=== PATIENT | female | born 1990 | race Caucasian/White ===

== ENCOUNTER 2016-12-26 13:15 | Inpatient (IN) | payer SELFPAY ==
[~2016-12-26] VITALS: Ht 167.6 cm; Wt 69.5 kg
[2016-12-26 13:26] VITALS: BP 112/71; PULSE 120; RESP 12; TEMP 100.3; O2SAT 96
[2016-12-26 13:35] VITALS: BP 112/71; PULSE 120; RESP 13; TEMP 100.3; O2SAT 96
[2016-12-26] MEDS ORDERED: VANCOMYCIN INJ 1,250 MG in SODIUM CHLOR 0.9% 250 ML INJ 250 ML IV STA (13:48)
[2016-12-26] MEDS ORDERED: PIPERACIL-TAZO 4.5 GM PREMIX 100 ML IV STA (13:48)
[2016-12-26 14:07] LABS: AUTOMATED NEUTROPHIL # 12.7 TH/MM3 (1.8-7.7); BASOPHIL % 0.3 % (0.0-2.0); EOSINOPHIL # 0.1 TH/MM3 (0-0.4); EOSINOPHIL % 0.4 % (0.0-4.0); HEMATOCRIT 34.6 % (35.0-46.0); HEMO FLAGS DIFF FINAL; LYMPH % 5.2 % (9.0-44.0); LYMPHOCYTE # 0.8 TH/MM3 (1.0-4.8); MEAN CELL VOLUME 92.4 FL (80.0-100.0); MEAN CORPUSCULAR HEMOGLOBIN 32.3 PG (27.0-34.0); MONO % 9.1 % (0.0-8.0); PLATELET COUNT 124 TH/MM3 (150-450); RED BLOOD COUNT 3.75 MIL/MM3 (4.00-5.30); RED CELL DISTRIBUTION WIDTH 13.8 % (11.6-17.2); WHITE BLOOD COUNT 14.9 TH/MM3 (4.0-11.0)
[2016-12-26 14:24] LABS: ANION GAP 9 MEQ/L (5-15); AST (GOT) 76 U/L (15-37); BICARBONATE 24.1 MEQ/L (21.0-32.0); BLOOD UREA NITROGEN 8 MG/DL (7-18); CHLORIDE 96 MEQ/L (98-107); GLOMERULAR FILTRATION RATE 91 ML/MIN (>89); POTASSIUM 3.2 MEQ/L (3.5-5.1); SODIUM (NA) 129 MEQ/L (136-145)
[2016-12-26 14:25] LABS: ALT (GPT) 173 U/L (10-53)
[2016-12-26 14:27] LABS: ALKALINE PHOSPHATASE 136 U/L (45-117); TOTAL BILIRUBIN ADULT 0.7 MG/DL (0.2-1.0)
--- NOTE | 2016-12-26 14:28 | PD ---
HPI Chief Complaint: Skin Problem Time Seen by Provider: 13:47 Travel History International Travel<30 days: No Contact w/Intl Traveler<30days: No Traveled to known affect area: No History of Present Illness HPI 26-year-old female arrives by EMS due to right knee pain. She developed some redness in the right knee last night and overnight the pain became worse to the point where it was so severe she couldn't walk leading to the EMS activation. She received 10 mg of morphine en route over which confirmed some benefit but moderate to severe pain still report upon arrival. EMS noted aperture of 102 and a heart rate of 120. Patient has a history of IV drug abuse most recently 2 months ago. The pain is worse with range of motion. It's constant pain. PFSH Past Medical History ADHD: Yes Anemia: Yes Asthma: Yes Autoimmune Disease: No Blood Disorders: No Bipolar Disorder: Yes (NOT ON MEDICATION) Anxiety: No Depression: Yes Cancer: No Cardiovascular Problems: No Cystic Fibrosis: No Diabetes: No Diminished Hearing: No Genitourinary: Yes (CHRONIC KIDNEY PROBLEM frequent uti ) Musculoskeletal: No Neurologic: No Psychiatric: Yes Respiratory: Yes Integumentary: Yes (SCABIES) Seizures: No Sickle Cell Disease: No Sleep Apnea: No Thyroid Disease: No Ulcer: No ?: Unknown LMP: October 2016 : 5 Para: 1 Miscarriage: 3 Past Surgical History Section: No Other Surgery: Yes (WISDOM TEETH EXTRACTION) Social History Alcohol Use: Yes (heavely ) Tobacco Use: Yes (1 PPD) Substance Use: Yes Allergies-Medications (Allergen,Severity, Reaction): Coded Allergies: Bactrim (Verified Allergy, Severe, HIVES, 12/26/16) Bactroban (Verified Allergy, Severe, 12/26/16) Bees (Verified Adverse Reaction, Severe, Anaphylaxis, 12/26/16) Reported Meds & Prescriptions Reported Meds & Active Scripts Active No Active Prescriptions or Reported Medications Review of Systems Except as stated in HPI: all other systems reviewed are Neg General / Constitutional: Positive: Fever Musculoskeletal: Positive: Pain Skin: Positive Lesions Physical Exam Narrative GENERAL: 26-year-old female well-nourished well-developed very sleepy SKIN: Focused skin assessment warm/dry. There is erythema about the proximal tibia anteriorly about 12 cm in greatest diameter extending from the region of the inferior margin of the patella to be about the distal aspect of the proximal third of the tibia. HEAD: Atraumatic. Normocephalic. EYES: Pupils equal and round. No scleral icterus. No injection or drainage. ENT: No nasal bleeding or discharge. Mucous membranes pink and moist. NECK: Trachea midline. No JVD. CARDIOVASCULAR: Regular rhythm. Tachycardia to about 120. RESPIRATORY: No accessory muscle use. Clear to auscultation. Breath sounds equal bilaterally. GASTROINTESTINAL: Abdomen soft, non-tender, nondistended. Hepatic and splenic margins not palpable. MUSCULOSKELETAL: No obvious deformities. No clubbing. No cyanosis. No edema. NEUROLOGICAL: Awake and alert. No obvious cranial nerve deficits. Motor grossly within normal limits. Normal speech. PSYCHIATRIC: Appropriate mood and affect; insight and judgment normal. Data Data Last Documented VS Vital Signs Date Time Temp Pulse Resp B/P Pulse Ox O2 Delivery O2 Flow Rate FiO2 12/26/16 13:35 120 13 12/26/16 13:35 100.3 112/71 96 Room Air Vital signs reviewed Orders Complete Blood Count With Diff (12/26/16 13:48) Comprehensive Metabolic Panel (12/26/16 13:48) Lactic Acid Sepsis Protocol (12/26/16 13:48) Urinalysis - C+S If Indicated (12/26/16 13:48) Blood Culture (12/26/16 13:48) Chest, Single Ap (12/26/16 13:48) Blood Glucose (12/26/16 13:48) Ecg Monitoring (12/26/16 13:48) Iv Access Insert/Monitor (12/26/16 13:48) Oximetry (12/26/16 13:48) Oxygen Administration (12/26/16 13:48) Piperacil-Tazo 4.5 Gm Premix (Zosyn 4.5 (12/26/16 13:48) Vancomycin Inj (Vancomycin Inj) (12/26/16 13:48) Knee, Ltd (1 Or 2vws) (12/26/16 ) Lidocai-Epi 1%-1:100,000 Inj (Xylocaine- (12/26/16 15:00) Synovial Fl Cell Count + Diff (12/26/16 14:48) Fluid Culture And Gram Stain (12/26/16 14:48) Mri Joint Knee W&W/O Contrast (12/26/16 ) Westergren Sedimentation Rate (12/26/16 15:07) C-Reactive Protein (Crp) (12/26/16 15:08) Admit Order (Ed Use Only) (12/26/16 15:15) Beta Hcg (Quant/Titer) (12/26/16 15:08) Labs Laboratory Tests Test 12/26/16 12/26/16 13:48 13:55 White Blood Count 14.9 TH/MM3 Red Blood Count 3.75 MIL/MM3 Hemoglobin 12.1 GM/DL Hematocrit 34.6 % Mean Corpuscular Volume 92.4 FL Mean Corpuscular Hemoglobin 32.3 PG Mean Corpuscular Hemoglobin 35.0 % Concent Red Cell Distribution Width 13.8 % Platelet Count 124 TH/MM3 Mean Platelet Volume 9.1 FL Neutrophils (%) (Auto) 85.0 % Lymphocytes (%) (Auto) 5.2 % Monocytes (%) (Auto) 9.1 % Eosinophils (%) (Auto) 0.4 % Basophils (%) (Auto) 0.3 % Neutrophils # (Auto) 12.7 TH/MM3 Lymphocytes # (Auto) 0.8 TH/MM3 Monocytes # (Auto) 1.4 TH/MM3 Eosinophils # (Auto) 0.1 TH/MM3 Basophils # (Auto) 0.0 TH/MM3 CBC Comment DIFF FINAL Differential Comment Sodium Level 129 MEQ/L Potassium Level 3.2 MEQ/L Chloride Level 96 MEQ/L Carbon Dioxide Level 24.1 MEQ/L Anion Gap 9 MEQ/L Blood Urea Nitrogen 8 MG/DL Creatinine 0.76 MG/DL Estimat Glomerular Filtration 91 ML/MIN Rate Random Glucose 106 MG/DL Calcium Level 8.5 MG/DL Total Bilirubin 0.7 MG/DL Aspartate Amino Transf 76 U/L (AST/SGOT) Alanine Aminotransferase 173 U/L (ALT/SGPT) Alkaline Phosphatase 136 U/L Total Protein 7.4 GM/DL Albumin 3.3 GM/DL Lactic Acid Level 1.1 mmol/L [facility] Medical Decision Making Medical Screen Exam Complete: Yes Emergency Medical Condition: Yes Medical Record Reviewed: Yes Differential Diagnosis Septic arthritis, cellulitis, necrotizing fasciitis, osteomyelitis Narrative Course CBC & BMP Diagram 12/26/16 13:48 AST 76 ALT 173 LA 1.1 Last 24 hours Impressions Chest X-Ray 12/26/16 1348 Signed Impressions: Service Date/Time: Monday, December 26, 2016 13:58 - CONCLUSION: No acute disease. Luis Daniel Calderon MD Knee X-Ray 12/26/16 0000 Signed Impressions: Service Date/Time: Monday, December 26, 2016 14:07 - CONCLUSION: No acute disease. Luis Daniel Calderon MD Zosyn and vancomycin started. The patient is sepsis criteria due to cellulitis. An attempt at right knee arthrocentesis failed. MRI of the knee ordered. ESR added on. D/w Senior [employer]i [employer]er Dr Renteria with admission under Dr Deleon. MRI knee/ESR/CRP pending. Procedures Procedure Narrative RIGHT knee arthrocentesis The right knee was sterilized with iodine. Lidocaine was injected around the site of insertion, posteromedial left patella. An 18-gauge needle with a 20 cc syringe was advanced for fluid aspirate however there is minimal if any fluid in the joint space and none was collected. Patient tolerated the procedure reasonably well. The skin overlying the site of injection was not cellulitic. Sepsis Criteria SIRS Criteria (2 or more): Temp > 100.9 or < 96.8, Heart rate over 90, WBC > 38486, < 4000 or > 10% bands Diagnosis Primary Impression: Sepsis affecting skin Additional Impressions: Hypokalemia Hyponatremia Admitting Information Admitting Physician Requests: Admit Scripts No Active Prescriptions or Reported MedCollins Fonseca MD Dec 26, 2016 14:28
--- NOTE | 2016-12-26 14:50 | RADRPT ---
EXAM DATE/TIME: 12/26/2016 13:58 [facility] COMPARISON: No previous studies available for comparison. INDICATIONS : Fever. Patient was found laying in street, states she is unaware of what happened. MEDICAL HISTORY : Unobtainable. SURGICAL HISTORY : Unobtainable. ENCOUNTER: Initial ACUITY: 1 day PAIN SCORE: 0/10 LOCATION: Bilateral chest FINDINGS: A single view of the chest demonstrates the lungs to be symmetrically aerated without evidence of mas s, infiltrate or effusion. The cardiomediastinal contours are unremarkable. Osseous structures are intact. CONCLUSION: No acute disease. Luis Daniel Calderon MD on December 26, 2016 at 14:48 Board Certified Radiologist. This report was verified electronically.
--- NOTE | 2016-12-26 14:50 | RADRPT ---
EXAM DATE/TIME: 12/26/2016 14:07 [facility] COMPARISON: No previous studies available for comparison. INDICATIONS : Right knee pain, redness, and swelling. Patient was found laying in street, states she is unaware of what happened. MEDICAL HISTORY : Unobtainable. SURGICAL HISTORY : Unobtainable. ENCOUNTER: Initial ACUITY: 1 day PAIN SCORE: 10/10 LOCATION: Right knee FINDINGS: Two view examination of the right knee demonstrates no evidence of fracture or dislocation. Bony min eralization is normal. The suprapatellar soft tissues have a normal configuration. CONCLUSION: No acute disease. Luis Daniel Calderon MD on December 26, 2016 at 14:48 Board Certified Radiologist. This report was verified electronically.
[2016-12-26] MEDS ORDERED: LIDOCAINE 1%/EPINEPHrine 1:100,000 SOLN 20 ML VIAL INFIL ONE (15:00)
[2016-12-26 15:24] VITALS: RESP 16; O2SAT 97
[2016-12-26] MEDS ORDERED: FLUMAZENIL 0.5 MG/5 ML VIAL IV PUSH PRN (15:45)
[2016-12-26] MEDS ORDERED: SENNOSIDES 8.6 MG TAB PO PRN (15:45)
[2016-12-26] MEDS ORDERED: NALOXONE HCL 0.4 MG/ML AMP IV PRN (15:45)
[2016-12-26] MEDS ORDERED: LACTULOSE SYRUP 20 GM/30 ML CUP PO PRN (15:45)
[2016-12-26] MEDS ORDERED: LORazepam 1 MG TAB PO PRN (15:45)
[2016-12-26] MEDS ORDERED: ONDANSETRON HCL 4 MG/2 ML VIAL IVP PRN (15:45)
[2016-12-26] MEDS ORDERED: LORazepam 2 MG/ML VIAL IV PUSH PRN ×4 (15:45)
[2016-12-26] MEDS ORDERED: BISACODYL 10 MG SUPP RECTAL PRN (15:45)
[2016-12-26] MEDS ORDERED: MAGNESIUM HYDROXIDE SUSP 30 ML CUP PO PRN (15:45)
[2016-12-26] MEDS ORDERED: Vancomycin Consult Pharmacy 1 EA OTHER SCH (15:45)
[2016-12-26] MEDS ORDERED: LORazepam 2 MG TAB PO PRN (15:45)
[2016-12-26] MEDS ORDERED: SODIUM CHLORIDE 0.9% FLUSH 10 ML FLUSH IV FLUSH PRN (15:45)
--- NOTE | 2016-12-26 16:04 | HHI.HP ---
HPI Service Family Medicine Primary Care Physician No Primary Care Physician Admission Diagnosis Sepsis 2/2 Cellulitis R Knee Diagnoses: International Travel<30 Days: No Contact w/Intl Traveler<30days: No Known Affected Area: No History of Present Illness Ms. Alcantara is a 26 yr old female w/ PMHx of MRSA and chronic kidney infection, presented to the ER via EMS with right knee swelling and pain. Pt reports pain starting yesterday morning. Pt went to [facility] for treatment. Received x-rays of the knee and found small solid masses. She was sent home with antibiotics plus pain medicine. She was unable to afford her medications and unable to take the antibiotics. Her right knee continued to worsen. [place] [facility] and was unable to move her right leg today without severe pain. [place] to move for about 6.5 hours. yaakov called 911. EMS transported her to the ED. Upon arrival , she had a temperature of 102.9. Denies CP, SOB, vaginal discharge, abdominal pain, and N/V. She is currently sexually active with only her fiance. She has hx of IV drug use. Last time she used IV meth was 2 months ago. She reports meth use 2 days ago, but not via IV. She reports heavy alcohol use (whiskey and beer). Last drink was yesterday around 1pm. Smokes 1 ppd. (Aleida Landrum MD R1) Review of Systems Other per HPI (Aleida Landrum MD R1) Past Family Social History Past Medical History MRSA, chronic kidney infections Past Surgical History None (Aleida Landrum MD R1) Allergies: Coded Allergies: Bactrim (Verified Allergy, Severe, HIVES, 12/26/16) Bactroban (Verified Allergy, Severe, 12/26/16) *MDRO Multi-Drug Resistant Organism (Verified Allergy, Unknown, 12/26/16) hx mrsa Bees (Verified Adverse Reaction, Severe, Anaphylaxis, 12/26/16) Family History Adopted Social History Reports being homeless for 1 year, [place]. Has mom, son , and step dad , but does not seem to be in communication with them. Works at a [employer]. Smokes 1 ppd. Heavy drinker (whiskey, beer). Reports marijuana use and meth use. (Aleida Landrum MD R1) Physical Exam Vital Signs Vital Signs Date Time Temp Pulse Resp B/P Pulse Ox O2 Delivery O2 Flow Rate FiO2 12/26/16 15:24 98 Room Air 12/26/16 15:24 16 97 Room Air 12/26/16 13:35 120 13 12/26/16 13:35 100.3 120 13 112/71 96 Room Air 12/26/16 13:26 100.3 120 12 112/71 96 Physical Exam GENERAL: This is a homeless, ill-appearing female complaining of right knee pain SKIN: Erythematous, warmth, swollen right knee. Affected area measuring 10cm x 11cm. EYES: 2-3mm pupils, reactive to light CARDIOVASCULAR: Regular rate and rhythm. Faint systolic murmur. no rubs or gallops. RESPIRATORY: Clear to auscultation. Breath sounds equal bilaterally. No wheezes , rales, or rhonchi. GASTROINTESTINAL: Abdomen soft, non-tender, nondistended. No hepato-splenomegaly , or palpable masses. No guarding. MUSCULOSKELETAL: Pulses 2+ bilaterally in lower extremities . Right knee tenderness upon palpation. Pain upon right leg movement. NEUROLOGICAL: Awake and alert Laboratory Laboratory Tests Test 12/26/16 12/26/16 13:48 13:55 White Blood Count 14.9 Red Blood Count 3.75 Hemoglobin 12.1 Hematocrit 34.6 Mean Corpuscular Volume 92.4 Mean Corpuscular Hemoglobin 32.3 Mean Corpuscular Hemoglobin 35.0 Concent Red Cell Distribution Width 13.8 Platelet Count 124 Mean Platelet Volume 9.1 Neutrophils (%) (Auto) 85.0 Lymphocytes (%) (Auto) 5.2 Monocytes (%) (Auto) 9.1 Eosinophils (%) (Auto) 0.4 Basophils (%) (Auto) 0.3 Neutrophils # (Auto) 12.7 Lymphocytes # (Auto) 0.8 Monocytes # (Auto) 1.4 Eosinophils # (Auto) 0.1 Basophils # (Auto) 0.0 CBC Comment DIFF FINAL Differential Comment Sodium Level 129 Potassium Level 3.2 Chloride Level 96 Carbon Dioxide Level 24.1 Anion Gap 9 Blood Urea Nitrogen 8 Creatinine 0.76 Estimat Glomerular Filtration 91 Rate Random Glucose 106 Calcium Level 8.5 Total Bilirubin 0.7 Aspartate Amino Transf 76 (AST/SGOT) Alanine Aminotransferase 173 (ALT/SGPT) Alkaline Phosphatase 136 Total Protein 7.4 Albumin 3.3 Lactic Acid Level 1.1 Date/Time Procedure Status Source Growth 12/26/16 13:55 Aerobic Blood Culture Received Blood Peripheral Pending 12/26/16 13:55 Anaerobic Blood Culture Received Blood Peripheral Pending (Aleida Landrum MD R1) Result Diagram: 12/26/16 1348 12/26/16 1348 Assessment and Plan Assessment and Plan 26 yr old F presenting to the hospital with fever, right knee pain and swelling , admitted for sepsis and cellulitis Code Status Full code Discussed Condition With Patient discussed with Dr. Deleon. Pt seen and examined with Dr. John Wiggins ( Aleida Landrum MD R1) Attending Attestation THIS CASE WAS DISCUSSED WITH THE RESIDENT PHYSICIANS. I HAVE REVIEWED THE RECORD AND AGREE WITH THE ABOVE NOTE AND PLAN OF CARE WAS DISCUSSED. I HAVE AUTHORIZED THE ORDER FOR ADMISSION TO AN IN-PATIENT STATUS. (Jluis Deleon MD) Problem List: (1) Sepsis Status: Acute Plan: Patient reported temp of 102.9 (EMS), temp was 100.3 in ED. Pt tachycardic (pulse 120s). Elevated WBC 14.9. Sepsis most likely from infection of right knee Patient received 1 bolus of NS and started on MIVFs Vancomycin 1000 mg IV q12h Zosyn 3.375 IV q6h Pain control Morphine 4 mg IV q4h PRN (pain 6-10) Morphine 2mg IV q4h for breakthrough pain Acetaminophen 650 mg PO q4h PRN Temp >100.4 ESR elevated at 33 CRP elevated at 15.40 CXR negative Faint systolic murmur heard on auscultation, pt has hx of IV drug use, 2D echo w/ doppler ordered looking for vegetation (2) Cellulitis of right knee Status: Acute Plan: Knee MRI showed cellulitis in the subcutaneous soft tissues of the prepatellar and infrapatellar soft tissues. There is a moderate degree of peripheral contrast enhancement and elongated central cystic suggesting possible early abscess formation. No drainable fluid collection seen. Patient started Vancomycin and Zosyn as above Knee x-ray negative HIV ordered Hepatitis panel ordered GC and chlamydia PCR ordered Orthopedics consulted (3) Alcohol abuse Status: Acute Plan: CIWA protocol (4) Nutrition, metabolism, and development symptoms Status: Acute Plan: Fluids: MIVF Electrolytes: monitor and replete as necessary Diet: Regular Nursing orders: vitals q4h, monitor I & Os (Aleida Landrum MD R1) Physician Certification 2 Midnight Certification Type: Admission for Inpatient Services Order for Inpatient Services The services are ordered in accordance with Medicare regulations or non- Medicare payer requirements, as applicable. In the case of services not specified as inpatient-only, they are appropriately provided as inpatient services in accordance with the 2-midnight benchmark. Estimated LOS (days): 2 2 days is the estimated time the patient will need to remain in the hospital, assuming treatment plan goals are met and no additional complications. Post-Hospital Plan: Home (Aleida Landrum MD R1) Aleida Landrum MD R1 Dec 26, 2016 16:03 Jluis Deleon MD Dec 26, 2016 23:03
[2016-12-26] MEDS ORDERED: GADODIAMIDE PF 287 MG/ML 10 ML VIAL (for RAD MRI) IV ONE (16:11)
[2016-12-26] MEDS ORDERED: SODIUM CHLOR 0.9% 1000 ML INJ 1,000 ML IV ONE (16:27)
[2016-12-26 16:32] LABS: BETA HCG QUANT LESS THAN 1 MIU/ML (0-5)
--- NOTE | 2016-12-26 16:39 | RADRPT ---
EXAM DATE/TIME: 12/26/2016 15:50 [facility] COMPARISON: No previous studies available for comparison. INDICATIONS : Cellulitis. CONTRAST: 10 cc Omniscan (gadodiamide) IV MEDICAL HISTORY : None. SURGICAL HISTORY : Tonsillectomy. ENCOUNTER: Initial ACUITY: 1 day PAIN SCORE: 6/10 LOCATION: Right knee TECHNIQUE: Multiplanar multisequence MRI examination of the knee was performed with and without contrast. FINDINGS: There is an abnormal appearance of the subcutaneous soft tissues about the anterior and inferior knee with moderate soft tissue swelling, marked T2 prolongation, and diffuse areas of enhancement. There is a 7 mm thick area in the soft tissues superficial to the infrapatellar tendon which is devoid of enhancement suggesting central cystic space, possibly abscess. The signal abnormality tracks anterio r to the patella and along the infrapatellar tendon. No abnormal signal seen within the patella or i nfrapatellar tendon. There is a small knee effusion. No signal abnormality seen in the marrow of the femur, patella, tibi a, or fibula. The menisci, MCL, and lateral collateral ligament complex is intact. The anterior and posterior cruciate ligaments are intact. No signal abnormality of the soft tissues of the popliteal region. CONCLUSION: Findings are characteristic of cellulitis in the subcutaneous soft tissues of the prepatellar and inf rapatellar soft tissues. There is a moderate degree of peripheral contrast enhancement and an elonga arelis central cystic suggesting possible early abscess formation. No drainable fluid collection seen h owever. Small knee effusion. No osseous abnormality seen. Juan Luis Hodges MD on December 26, 2016 at 16:33 Board Certified Radiologist. This report was verified electronically.
[2016-12-26] MEDS: SODIUM CHLOR 0.9% 1000 ML INJ 1,000 ML IV SCH (16:44)
[2016-12-26] MEDS: POTASSIUM CHLOR 20 MEQ PREMIX 100 ML IV SCH ×2 (17:10→20:56)
[2016-12-26] MEDS: MORPHINE SULFATE 4 MG/ML INJ IV PUSH PRN ×2 (17:10→20:58)
[2016-12-26 17:16] VITALS: BP 111/60; PULSE 121; RESP 17; TEMP 102.4; O2SAT 99
[2016-12-26] MEDS: ACETAMINOPHEN 325 MG TAB PO PRN (17:19)
[2016-12-26] MEDS ORDERED: MORPHINE SULFATE 4 MG/ML INJ IV PUSH PRN (18:30)
[2016-12-26 20:00] VITALS: BP 99/55; PULSE 108; PULSE 112; RESP 19; TEMP 99; O2SAT 96
[2016-12-26] MEDS: DOCUSATE SODIUM 50 MG/SENNA 8.6 MG TAB PO SCH (20:57)
[2016-12-26] MEDS: SODIUM CHLORIDE 0.9% FLUSH 10 ML FLUSH IV FLUSH SCH (20:57)
--- NOTE | 2016-12-26 22:58 | HHI.HP ---
HPI Service Family Medicine Primary Care Physician No Primary Care Physician Admission Diagnosis Sepsis 2/2 Cellulitis R Knee Diagnoses: (1) Sepsis (2) Cellulitis of right knee (3) Alcohol abuse (4) Nutrition, metabolism, and development symptoms International Travel<30 Days: No Contact w/Intl Traveler<30days: No Known Affected Area: No History of Present Illness 26 yo F presenting to the hospital with right knee swelling and pain x1 day. States that the right knee began hurting on the day prior to arrival without injury or trauma to the knee. She tried to work but had to leave after 2 hours due to progressive pain with walking and swelling. [place] calvin [place]Patient [place] and woke up in excruciating pain this morning with inability to move the right knee or walk on it due to pain. He calvin then had to call [facility] to get patient to the hospital. She endorses nausea and fevers/chills as well as warmth/redness of the knee. She has a pmhx or MRSA and chronic kidney infections. She is homeless and has a history of IV drug use and methamphetamine use. She states her last IV drug use was >2 months ago. She states last methamphetamine use was 2 days ago. Pt. went to [facility] and obtained Xrays of the knee and was sent home on oral abx, that she did not fill or take. She reports heavy alcohol use ( whiskey and beer). Last drink was yesterday around 1pm. Smokes 1 ppd. Review of Systems Cardiovascular: COMPLAINS OF: Lower Extremity Edema, DENIES: Chest pain, Palpitations, Dyspnea on Exertion Gastrointestinal: COMPLAINS OF: Nausea, DENIES: Abdominal pain, Vomiting Musculoskeletal: COMPLAINS OF: Joint pain, Stiffness, Joint Swelling Past Family Social History Past Medical History MRSA, chronic kidney infections Past Surgical History None Allergies: Coded Allergies: Bactrim (Verified Allergy, Severe, HIVES, 12/26/16) Bactroban (Verified Allergy, Severe, 12/26/16) *MDRO Multi-Drug Resistant Organism (Verified Allergy, Unknown, 12/26/16) hx mrsa Bees (Verified Adverse Reaction, Severe, Anaphylaxis, 12/26/16) Family History Adopted Social History Reports being homeless for 1 year, [place]. Has mom, son , and step dad , but does not seem to be in communication with them. Works at a [employer]. Smokes 1 ppd. Heavy drinker (whiskey, beer). Reports marijuana use and meth use. Physical Exam Vital Signs Vital Signs Date Time Temp Pulse Resp B/P Pulse Ox O2 Delivery O2 Flow Rate FiO2 12/26/16 20:00 99.0 112 19 99/55 96 12/26/16 17:16 102.4 121 17 111/60 99 12/26/16 15:24 98 Room Air 12/26/16 15:24 16 97 Room Air 12/26/16 13:35 120 13 12/26/16 13:35 100.3 120 13 112/71 96 Room Air 12/26/16 13:26 100.3 120 12 112/71 96 Physical Exam GENERAL: This is a homeless, ill-appearing female complaining of right knee pain SKIN: Erythematous, warmth, swollen right knee. Affected area measuring 10cm x 11cm. EYES: 2-3mm pupils, reactive to light CARDIOVASCULAR: Regular rate and rhythm. Faint systolic murmur. no rubs or gallops. RESPIRATORY: Clear to auscultation. Breath sounds equal bilaterally. No wheezes , rales, or rhonchi. GASTROINTESTINAL: Abdomen soft, non-tender, nondistended. No hepato-splenomegaly , or palpable masses. No guarding. MUSCULOSKELETAL: Pulses 2+ bilaterally in lower extremities . Right knee tenderness upon palpation. Pain upon right leg movement. NEUROLOGICAL: Awake and alert Laboratory Laboratory Tests Test 12/26/16 12/26/16 13:48 13:55 White Blood Count 14.9 Red Blood Count 3.75 Hemoglobin 12.1 Hematocrit 34.6 Mean Corpuscular Volume 92.4 Mean Corpuscular Hemoglobin 32.3 Mean Corpuscular Hemoglobin 35.0 Concent Red Cell Distribution Width 13.8 Platelet Count 124 Mean Platelet Volume 9.1 Neutrophils (%) (Auto) 85.0 Lymphocytes (%) (Auto) 5.2 Monocytes (%) (Auto) 9.1 Eosinophils (%) (Auto) 0.4 Basophils (%) (Auto) 0.3 Neutrophils # (Auto) 12.7 Lymphocytes # (Auto) 0.8 Monocytes # (Auto) 1.4 Eosinophils # (Auto) 0.1 Basophils # (Auto) 0.0 CBC Comment DIFF FINAL Differential Comment Erythrocyte Sedimentation Rate 33 Sodium Level 129 Potassium Level 3.2 Chloride Level 96 Carbon Dioxide Level 24.1 Anion Gap 9 Blood Urea Nitrogen 8 Creatinine 0.76 Estimat Glomerular Filtration 91 Rate Random Glucose 106 Calcium Level 8.5 Total Bilirubin 0.7 Aspartate Amino Transf 76 (AST/SGOT) Alanine Aminotransferase 173 (ALT/SGPT) Alkaline Phosphatase 136 C-Reactive Protein 15.40 Total Protein 7.4 Albumin 3.3 Human Chorionic Gonadotropin, LESS THAN 1 Quant Lactic Acid Level 1.1 Date/Time Procedure Status Source Growth 12/26/16 13:55 Aerobic Blood Culture Received Blood Peripheral Pending 12/26/16 13:55 Anaerobic Blood Culture Received Blood Peripheral Pending Result Diagram: 12/26/16 1348 12/26/16 1348 Imaging Last 48 hours Impressions Chest X-Ray 12/26/16 1348 Signed Impressions: Service Date/Time: Monday, December 26, 2016 13:58 - CONCLUSION: No acute disease. Luis Daniel Calderon MD Knee X-Ray 12/26/16 0000 Signed Impressions: Service Date/Time: Monday, December 26, 2016 14:07 - CONCLUSION: No acute disease. Luis Daniel Calderon MD Knee MRI 12/26/16 0000 Signed Impressions: Service Date/Time: Monday, December 26, 2016 15:50 - CONCLUSION: Findings are characteristic of cellulitis in the subcutaneous soft tissues of the prepatellar and infrapatellar soft tissues. There is a moderate degree of peripheral contrast enhancement and an elongated central cystic suggesting possible early abscess formation. No drainable fluid collection seen however. Small knee effusion. No osseous abnormality seen. Juan Luis Hodges MD Septic Shock Reassessment Heart: Regular rate and rhythm, Murmur Lungs: Clear Skin: Warm, Moist, Mastic Peripheral Pulses: Bounding Right Radial Bounding Left Radial Capillary Refill: Brisk, <2 seconds Assessment and Plan Assessment and Plan 26 yr old F presenting to the hospital with fever, right knee pain and swelling , admitted for sepsis and cellulitis Problem List: (1) Sepsis Status: Acute Plan: Patient reported temp of 102.9 (EMS), temp was 100.3 in ED. Pt tachycardic (pulse 120s). Elevated WBC 14.9. Sepsis most likely from infection of right knee Patient received 1 bolus of NS and started on MIVFs Antibiotics: - Vancomycin 1000 mg IV q12h - Zosyn 3.375 IV q6h Pain control Morphine 4 mg IV q4h PRN (pain 6-10) Morphine 2mg IV q4h for breakthrough pain Acetaminophen 650 mg PO q4h PRN Temp >100.4 ESR elevated at 33 CRP elevated at 15.40 CXR negative Faint systolic murmur heard on auscultation, pt has hx of IV drug use, 2D echo w/ doppler ordered looking for vegetation (2) Cellulitis of right knee Status: Acute Plan: Knee MRI showed cellulitis in the subcutaneous soft tissues of the prepatellar and infrapatellar soft tissues. There is a moderate degree of peripheral contrast enhancement and elongated central cystic suggesting possible early abscess formation. No drainable fluid collection seen. Attempted aspiration of the right knee by the ED physician did not yield any aspirate to send for culture Patient started Vancomycin and Zosyn as above Knee x-ray negative HIV ordered Hepatitis panel ordered GC and chlamydia PCR ordered Orthopedics consulted (3) Alcohol abuse Status: Acute Plan: CIWA protocol (4) Nutrition, metabolism, and development symptoms Status: Acute Plan: Fluids: MIVF Electrolytes: monitor and replete as necessary Diet: Regular Nursing orders: vitals q4h, monitor I & Os Physician Certification 2 Midnight Certification Type: Admission for Inpatient Services Order for Inpatient Services The services are ordered in accordance with Medicare regulations or non- Medicare payer requirements, as applicable. In the case of services not specified as inpatient-only, they are appropriately provided as inpatient services in accordance with the 2-midnight benchmark. Estimated LOS (days): 2 2 days is the estimated time the patient will need to remain in the hospital, assuming treatment plan goals are met and no additional complications. Post-Hospital Plan: Not yet determined Jluis Deleon MD Dec 26, 2016 22:58
[2016-12-26] MEDS: PIPERACIL-TAZO 3.375 GM PREMIX 50 ML IV SCH (23:19)
[2016-12-27] VITALS (7 sets, daily range): BP systolic 100–128; BP diastolic 57–65; PULSE 92–113; RESP 17–20; TEMP 96.9–101.1; O2SAT 95–99
[2016-12-27] MEDS: MORPHINE SULFATE 4 MG/ML INJ IV PUSH PRN ×6 (01:10→21:59)
[2016-12-27] MEDS: SODIUM CHLOR 0.9% 1000 ML INJ 1,000 ML IV SCH ×3 (01:12→20:46)
[2016-12-27] MEDS: PIPERACIL-TAZO 3.375 GM PREMIX 50 ML IV SCH ×4 (01:12→20:30)
[2016-12-27 01:43] LABS: AMPHETAMINE, URINE POS (NEG); BARBITURATES, URINE NEG (NEG); COCAINE, URINE NEG (NEG)
[2016-12-27 01:48] LABS: BACTERIA, URINE OCC /hpf; BLOOD, URINE TRACE (NEG); GLUCOSE,URINE NEG (NEG); KETONE, URINE NEG (NEG); MUCUS URINE MANY /lpf (OCC); NITRITE,URINE NEG (NEG); PH, URINE 5.5 (5.0-8.5); SQUAMOUS EPITHELIAL CELL URINE 14 /hpf (0-5); URINE COLOR YELLOW (YELLW/STRAW)
[2016-12-27 01:49] LABS: COMMENT (UR) CATH-CULTURE IND; CULTURE IF INDICATED CATH CULTURE IND
[2016-12-27] MEDS ORDERED: VANCOMYCIN INJ 1,250 MG in SODIUM CHLOR 0.9% 250 ML INJ 250 ML IV SCH (03:00)
[2016-12-27] MEDS: VANCOMYCIN 1,000 MG/NS 250 ML IV SCH ×4 (03:09→15:09)
[2016-12-27] MEDS: ACETAMINOPHEN 325 MG TAB PO PRN (03:14)
[2016-12-27 04:19] LABS: CHLAMYDIA PCR NOT DETECTED (NOT DETECT); NEISSERIA PCR NOT DETECTED (NOT DETECT)
[2016-12-27 04:57] LABS: AUTOMATED NEUTROPHIL # 9.5 TH/MM3 (1.8-7.7); BASOPHIL % 0.2 % (0.0-2.0); EOSINOPHIL # 0.1 TH/MM3 (0-0.4); EOSINOPHIL % 0.6 % (0.0-4.0); HEMATOCRIT 31.5 % (35.0-46.0); HEMO FLAGS DIFF FINAL; LYMPH % 9.5 % (9.0-44.0); LYMPHOCYTE # 1.1 TH/MM3 (1.0-4.8); MEAN CELL VOLUME 93.7 FL (80.0-100.0); MEAN CORPUSCULAR HEMOGLOBIN 32.1 PG (27.0-34.0); MEAN CORPUSCULAR HGB CONC 34.3 % (32.0-36.0); MONO % 8.4 % (0.0-8.0); NEUT % 81.3 % (16.0-70.0); PLATELET COUNT 102 TH/MM3 (150-450); RED BLOOD COUNT 3.37 MIL/MM3 (4.00-5.30); RED CELL DISTRIBUTION WIDTH 14.3 % (11.6-17.2); WHITE BLOOD COUNT 11.6 TH/MM3 (4.0-11.0)
[2016-12-27 05:21] LABS: BICARBONATE 23.9 MEQ/L (21.0-32.0); POTASSIUM 3.7 MEQ/L (3.5-5.1)
[2016-12-27] MEDS: DOCUSATE SODIUM 50 MG/SENNA 8.6 MG TAB PO SCH ×2 (08:05→20:30)
[2016-12-27] MEDS: MULTIVITAMIN TAB PO SCH (08:05)
[2016-12-27] MEDS: FOLIC ACID 1 MG TAB PO SCH (08:05)
[2016-12-27] MEDS: THIAMINE HCL 100 MG TAB PO SCH (08:05)
[2016-12-27] MEDS ORDERED: SODIUM CHLOR 0.9% 1000 ML INJ 1,000 ML IV ONE (08:41)
[2016-12-27] MEDS: SODIUM CHLORIDE 0.9% FLUSH 10 ML FLUSH IV FLUSH SCH ×2 (09:00→20:01)
[2016-12-27] MEDS ORDERED: INFLUENZA VIRUS VACCINE (QUADRIVALENT) 0.5 ML SYR IM ONE (10:00)
[2016-12-27] MEDS ORDERED: PNEUMOCOCCAL POLYVALENT INJ 25 MCG/0.5 ML SYR IM ONE (10:00)
--- NOTE | 2016-12-27 11:39 | HHI.FPPN ---
Subjective Remarks No acute events overnight. Pt lying in bed with fiance. Afebrile (97.7) BP 100/ 57, tachycardia at 92. pt given 1L of NS bolus this AM. Pt complains of right knee pain 02/07, morphine only helping slightly. She has complains of headache, but most likely related to the morphine she is currently taking. Had one episode of non-bloody vomiting contain food particles around 1200 last night. Denies CP, SOB, and chills. (Aleida Landrum MD R1) Objective Vitals Vital Signs Date Time Temp Pulse Resp B/P Pulse Ox O2 Delivery O2 Flow Rate FiO2 12/27/16 11:21 21 12/27/16 08:40 102 12/27/16 08:00 97.7 92 20 100/57 97 12/27/16 04:00 101.1 113 19 104/60 96 12/27/16 00:00 100.1 107 20 110/65 99 12/26/16 20:00 108 12/26/16 20:00 99.0 112 19 99/55 96 12/26/16 17:16 102.4 121 17 111/60 99 12/26/16 15:24 98 Room Air 12/26/16 15:24 16 97 Room Air 12/26/16 13:35 120 13 12/26/16 13:35 100.3 120 13 112/71 96 Room Air 12/26/16 13:26 100.3 120 12 112/71 96 I/O 12/26/16 12/26/16 12/26/16 12/27/16 12/27/16 12/27/16 07:00 15:00 23:00 07:00 15:00 23:00 Intake Total 600 ml 807 ml 0 ml Output Total 200 ml Balance 600 ml 607 ml 0 ml Intake Oral 120 ml 120 ml 0 ml IV Total 480 ml 687 ml Output Urine Total 200 ml # Voids 0 # Bowel Movements 0 0 (Aleida Landrum MD R1) Result Diagram: 12/27/16 0412 12/27/16 0412 Imaging Last Impressions Chest X-Ray 12/26/16 1348 Signed Impressions: Service Date/Time: Monday, December 26, 2016 13:58 - CONCLUSION: No acute disease. Luis Daniel Calderon MD Knee X-Ray 12/26/16 0000 Signed Impressions: Service Date/Time: Monday, December 26, 2016 14:07 - CONCLUSION: No acute disease. Luis Daniel Calderon MD Knee MRI 12/26/16 0000 Signed Impressions: Service Date/Time: Monday, December 26, 2016 15:50 - CONCLUSION: Findings are characteristic of cellulitis in the subcutaneous soft tissues of the prepatellar and infrapatellar soft tissues. There is a moderate degree of peripheral contrast enhancement and an elongated central cystic suggesting possible early abscess formation. No drainable fluid collection seen however. Small knee effusion. No osseous abnormality seen. Juan Luis Hodges MD Objective Remarks GENERAL: This is a homeless, ill-appearing female complaining of right knee pain SKIN: Erythematous, warmth, swollen right knee. Initial affected area measuring 10cm x 11cm, now spreading inferiorly about 1cm. EYES: 2-3mm pupils, reactive to light CARDIOVASCULAR: Regular rate and rhythm. Faint systolic murmur. no rubs or gallops. RESPIRATORY: Clear to auscultation. Breath sounds equal bilaterally. No wheezes , rales, or rhonchi. GASTROINTESTINAL: Abdomen soft, non-tender, nondistended. No hepato-splenomegaly , or palpable masses. No guarding. MUSCULOSKELETAL: Pulses 2+ bilaterally in lower extremities . Right knee tenderness upon palpation. Pain upon right leg movement. NEUROLOGICAL: Awake and alert (Aleida Landrum MD R1) A/P Assessment and Plan 26 yr old F presenting to the hospital with fever, right knee pain and swelling , admitted for sepsis and cellulitis (Aleida Landrum MD R1) Attending Attestation Pt. examined and case discussed with resident physicians I have read the above note and agree with the assessment/plan as discussed with me I was involved in all medical decision making for this patient Jluis Deleon MD (Jluis Deleon MD) Problem List: (1) Sepsis Status: Acute Plan: Pt meet sepsis criteria upon admission Antibiotics: - Vancomycin 1000 mg IV q12h - Zosyn 3.375 IV q6h Pain control Ofirmev 1,000 MG IV q6h Morphine 4 mg IV q4h PRN (pain 6-10) Morphine 2mg IV q4h for breakthrough pain Acetaminophen 650 mg PO q4h PRN Temp >100.4 Faint systolic murmur heard on auscultation, pt has hx of IV drug use, 2D echo w/ doppler ordered looking for vegetation Patient 102.9 (EMS), temp was 100.3 in ED. Pt tachycardic (pulse 120s). Elevated WBC 14.9. Sepsis most likely from infection of right knee. ESR elevated 33 CRP elevated at 15.40 CXR negative UA- positive for opiates and amphetamines (2) Cellulitis of right knee Status: Acute Plan: Knee MRI showed cellulitis in the subcutaneous soft tissues of the prepatellar and infrapatellar soft tissues. There is a moderate degree of peripheral contrast enhancement and elongated central cystic suggesting possible early abscess formation. No drainable fluid collection seen. Attempted aspiration of the right knee by the ED physician did not yield any aspirate to send for culture Patient started Vancomycin and Zosyn as above Orthopedics consulted, awaiting recs GC and chlamydia PCR negative Knee x-ray negative HIV pending Hepatitis panel pending (3) Alcohol abuse Status: Acute Plan: CILA protocol Multivitamin 1 Tab PO daily Thiamine 100mg PO daily Rolic Acid 1 mg PO daily (4) Nutrition, metabolism, and development symptoms Status: Acute Plan: Fluids: MIVF Electrolytes: monitor and replete as necessary Diet: Regular Nursing orders: vitals q4h, monitor I & Os (Aleida Landrum MD R1) Aleida Landrum MD R1 Dec 27, 2016 11:39 Jluis Deleon MD Dec 27, 2016 13:17
--- NOTE | 2016-12-27 12:17 | ECHRPT ---
Indication: sepsis poss. endocarditis CONCLUSIONS Normal left ventricular size. There was limited left ventricular wall motion assessment due to poor endocardial visualization. Mild concentric left ventricular hypertrophy. No regional wall motion abnormalities are present. The right ventricle was not well visualized. The right atrium is not well visualized. The interatrial septum not well visualized. No mitral valve regurgitation. The aortic valve is not well visualized. . No aortic valve regurgitation. No aortic valve stenosis. The tricuspid valve is not well visualized. There is trace tricuspid valve regurgitation. The estimated pulmonary arterial pressure is _25_ mmHg. The pulmonary valve is not well visualized. BP: / HR: Rhythm: MEASUREMENTS (Male / Female) Normal Values Technical Quality:Technically difficult study. 2D ECHO LV Diastolic Diameter PLAX 4.3 cm 4.2 - 5.9 / 3.9 - 5.3 cm LV Systolic Diameter PLAX 3.0 cm IVS Diastolic Thickness 1.2 cm 0.6 - 1.0 / 0.6 - 0.9 cm LVPW Diastolic Thickness 1.1 cm 0.6 - 1.0 / 0.6 - 0.9 cm LV Relative Wall Thickness 0.5 RV Internal Dim ED PLAX 2.5 cm M-MODE Aortic Root Diameter MM 2.7 cm LA Systolic Diameter MM 2.7 cm LA Ao Ratio MM 1.0 AV Cusp Separation MM 2.1 cm DOPPLER TR Peak Velocity 252.0 cm/s TR Peak Gradient 25.4 mmHg FINDINGS LEFT VENTRICLE Normal left ventricular size. There was limited left ventricular wall motion assessment due to poor endocardial visualization. Mild concentric left ventricular hypertrophy. The left ventricular systolic function is normal with an estimated ejection fraction in the range of 60-65%. No regional wall motion abnormalities are present. RIGHT VENTRICLE The right ventricle was not well visualized. Normal right ventricular size and systolic function. LEFT ATRIUM The left atrial size is normal. RIGHT ATRIUM The right atrium is not well visualized. The right atrial size is normal. ATRIAL SEPTUM The interatrial septum not well visualized. Normal atrial septal thickness without atrial level shunting by limited color doppler interrogation. AORTA The aortic root and proximal ascending aorta are normal in size on limited imaging. MITRAL VALVE Structurally normal mitral valve. No mitral valve regurgitation. AORTIC VALVE The aortic valve is not well visualized. . No aortic valve regurgitation. No aortic valve stenosis. TRICUSPID VALVE The tricuspid valve is not well visualized. There is trace tricuspid valve regurgitation. The estimated pulmonary arterial pressure is _25_ mmHg. PULMONARY VALVE The pulmonary valve is not well visualized. VESSELS The inferior vena cava is normal in size. PERICARDIUM No pericardial effusion. Regan Dunn MD (Electronically Signed) Final Date:27 December 2016 12:16
[2016-12-27] MEDS: ACETAMINOPHEN 1000 MG/100 ML VIAL IV SCH ×2 (12:29→18:05)
--- NOTE | 2016-12-27 17:41 | PD.CONS ---
cc: Triston Adams Jr., MD HPI Service Orthopedic Surgeons Consult Requested By Primary Care Physician No Primary Care Physician Admission Diagnosis Sepsis 2/2 Cellulitis R Knee Diagnoses: Chief Complaint: Right knee pain History of Present Illness 26-year-old female with a history of IV drug abuse presented to the hospital after 1 day history of right knee pain and swelling. She is however still able to bear weight. She denies any trauma. She was recently seen at the emergency department at [facility] where she was diagnosed with cellulitis and prescribed po Antibiotics which She did not take. She denies fevers but reports some chills. Denies loss of consciousness. Currently patient's pain is stabbing, 7 out of 10, exacerbated by any range of motion, relieved at rest and with IV pain medicine, pain is nonradiating, not associated with any paresthesia and numbness to the right lower extremity. She has a pmhx or MRSA and chronic kidney infections. She is homeless and has a history of IV drug use and methamphetamine use. She states her last IV drug use was >2 months ago. She states last methamphetamine use was 2 days ago. Review of Systems Cardiovascular: COMPLAINS OF: Lower Extremity Edema, DENIES: Chest pain, Palpitations, Dyspnea on Exertion Gastrointestinal: COMPLAINS OF: Nausea, DENIES: Abdominal pain, Vomiting Musculoskeletal: COMPLAINS OF: Joint pain, Stiffness, Joint Swelling PFSH Past Family Social History Past Medical History MRSA, chronic kidney infections Past Surgical History None Allergies: Coded Allergies: Bactrim (Verified Allergy, Severe, HIVES, 12/26/16) Bactroban (Verified Allergy, Severe, 12/26/16) *MDRO Multi-Drug Resistant Organism (Verified Allergy, Unknown, 12/26/16) hx mrsa Bees (Verified Adverse Reaction, Severe, Anaphylaxis, 12/26/16) Family History Adopted Social History Reports being homeless for 1 year, [place]. Has mom, son , and step dad , but does not seem to be in communication with them. 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 Smokes 1 ppd. Heavy drinker (whiskey, beer). Reports marijuana use and meth use. Review of Systems Gastrointestinal: DENIES: Abdominal pain, Black stools, Bloody stools, Constipation, Diarrhea, Nausea, Vomiting, Difficulty Swallowing, Anorexia Neurologic: DENIES: Abnormal gait, Headache, Localized weakness, Paresthesias, Seizures, Speech Problems, Tremor, Poor Balance Psychiatric: DENIES: Anxiety, Confusion, Mood changes, Depression, Hallucinations, Agitation, Suicidal Ideation, Homicidal Ideation, Delusions Past Family Social History Allergies: Coded Allergies: Bactrim (Verified Allergy, Severe, HIVES, 12/26/16) Bactroban (Verified Allergy, Severe, 12/26/16) *MDRO Multi-Drug Resistant Organism (Verified Allergy, Unknown, 12/26/16) hx mrsa Bees (Verified Adverse Reaction, Severe, Anaphylaxis, 12/26/16) Active Ordered Medications Current Medications Medications (Trade) Dose Ordered Sig/Marissa Route Start Time Stop Time Status Last Admin (NS 1000 ml Inj) 1,000 ml @ 100 mls/hr Q10H IV 12/26/16 16:00 12/27/16 12:00 (NS Flush) 2 ml UNSCH PRN IV FLUSH 12/26/16 15:45 12/27/16 09:54 (NS Flush) 2 ml BID IV FLUSH 12/26/16 21:00 (Tylenol) 650 mg Q4H PRN PO 12/26/16 15:45 12/27/16 03:14 (Zofran Inj) 4 mg Q6H PRN IVP 12/26/16 15:45 (Narcan Inj) 0.4 mg UNSCH PRN IV 12/26/16 15:45 (Jackie-Colace) 1 tab BID PO 12/26/16 21:00 12/27/16 08:05 (Milk Of Magnesia Liq) 30 ml Q12H PRN PO 12/26/16 15:45 (Senokot) 17.2 mg Q12H PRN PO 12/26/16 15:45 (Dulcolax Supp) 10 mg DAILY PRN RECTAL 12/26/16 15:45 (Lactulose Liq) 30 ml DAILY PRN PO 12/26/16 15:45 (Romazicon Inj) 0.2 mg Q1M PRN IV PUSH 12/26/16 15:45 (Ativan) 1 mg Q4H PRN PO 12/26/16 15:45 (Ativan Inj) 1 mg Q4H PRN IV PUSH 12/26/16 15:45 (Ativan) 2 mg Q2H PRN PO 12/26/16 15:45 (Ativan Inj) 2 mg Q2H PRN IV PUSH 12/26/16 15:45 (Ativan Inj) 2 mg Q1H PRN IV PUSH 12/26/16 15:45 Lorazepam 2 mg 2 mg Q15M PRN IV PUSH 12/26/16 15:45 Piperacillin Sod/ Tazobactam Sod 50 ml @ 100 mls/hr Q6H IV 12/26/16 20:00 12/27/16 14:14 Pharmacy Profile Note 0 ml @ 0 mls/hr UNSCH OTHER 12/26/16 15:45 (Vancomycin Inj/ NS 250 ml Inj) 250 ml @ 250 mls/hr Q12H IV 12/27/16 03:00 12/27/16 15:09 Miscellaneous Information SPECIFIC LAB TO BE NAHEED... ONCE ONCE .XX 12/28/16 02:45 12/28/16 02:46 (Morphine Inj) 4 mg Q4H PRN IV PUSH 12/26/16 15:55 12/27/16 14:03 (Morphine Inj) 2 mg Q4H PRN IV PUSH 12/26/16 18:30 (Theragran) 1 tab DAILY PO 12/27/16 09:00 12/27/16 08:05 (Vitamin B1) 100 mg DAILY PO 12/27/16 09:00 12/27/16 08:05 (Folate) 1 mg DAILY PO 12/27/16 09:00 12/27/16 08:05 (Ofirmev Inj) 1,000 mg Q6H IV 12/27/16 13:00 12/30/16 12:59 12/27/16 12:29 Reported Meds & Active Scripts Active No Active Prescriptions or Reported Medications Physical Exam Vital Signs Vital Signs Date Time Temp Pulse Resp B/P Pulse Ox O2 Delivery O2 Flow Rate FiO2 12/27/16 16:00 100.2 111 19 128/65 95 12/27/16 14:08 18 12/27/16 12:59 19 12/27/16 12:00 100.9 107 17 105/57 96 12/27/16 11:21 21 12/27/16 08:40 102 7/30/17 08:00 97.7 92 20 100/57 97 12/27/16 04:00 101.1 113 19 104/60 96 12/27/16 00:00 100.1 107 20 110/65 99 12/26/16 20:00 108 12/26/16 20:00 99.0 112 19 99/55 96 Physical Exam Alert awake and oriented x 3. No acute distress. Head: NC/AT Neck: No pain with any range of motion and neck. Pulmonary: Normal respiratory effort. Bilateral upper extremity: No deformities Intact sensation distally in median, ulnar, and radial nerve. Intact motor in anterior interosseous, posterior interosseous, and ulnar nerve. 2+ radial artery pulses. Good cap refill. RIGHT lower extremity: No deformity, very small trace effusion right knee. No erythema, no fluctuance. Tender to palpation about the patella more specifically infrapatellar region. Range of motion 10-60. Grossly Neurovascularly intact, +EHL/FHL. + PT/DP pulses. Supple compartments. Negative Homans sign. LEFT lower extremity: No deformity, grossly Neurovascularly intact Laboratory Laboratory Tests Test 12/27/16 12/27/16 01:25 04:12 Urine Color YELLOW Urine Turbidity CLOUDY Urine pH 5.5 Urine Specific Franklin 1.023 Urine Protein 30 Urine Glucose (UA) NEG Urine Ketones NEG Urine Occult Blood TRACE Urine Nitrite NEG Urine Bilirubin NEG Urine Urobilinogen LESS THAN 2.0 Urine Leukocyte Esterase LARGE Urine RBC 7 Urine WBC 89 Urine WBC Clumps OCC Urine Squamous Epithelial 14 Cells Urine Bacteria OCC Urine Mucus MANY Microscopic Urinalysis Comment CATH-CULTURE IND Urine Opiates Screen POS Urine Barbiturates Screen NEG Urine Amphetamines Screen POS Urine Benzodiazepines Screen NEG Urine Cocaine Screen NEG Urine Cannabinoids Screen NEG Chlamydia trachomatis DNA NOT DETECTED (PCR) Neisseria gonorrhoeae DNA NOT DETECTED (PCR) White Blood Count 11.6 Red Blood Count 3.37 Hemoglobin 10.8 Hematocrit 31.5 Mean Corpuscular Volume 93.7 Mean Corpuscular Hemoglobin 32.1 Mean Corpuscular Hemoglobin 34.3 Concent Red Cell Distribution Width 14.3 Platelet Count 102 Mean Platelet Volume 8.9 Neutrophils (%) (Auto) 81.3 Lymphocytes (%) (Auto) 9.5 Monocytes (%) (Auto) 8.4 Eosinophils (%) (Auto) 0.6 Basophils (%) (Auto) 0.2 Neutrophils # (Auto) 9.5 Lymphocytes # (Auto) 1.1 Monocytes # (Auto) 1.0 Eosinophils # (Auto) 0.1 Basophils # (Auto) 0.0 CBC Comment DIFF FINAL Differential Comment Sodium Level 131 Potassium Level 3.7 Chloride Level 99 Carbon Dioxide Level 23.9 Anion Gap 8 Blood Urea Nitrogen 9 Creatinine 0.65 Estimat Glomerular Filtration 109 Rate Random Glucose 97 Calcium Level 8.1 Date/Time Procedure Status Source Growth 12/27/16 01:25 Urine Culture Received Urine Catheterized Urine Pending 12/26/16 13:55 Aerobic Blood Culture - Preliminary Resulted Blood Peripheral NO GROWTH IN 1 DAY 12/26/16 13:55 Anaerobic Blood Culture - Preliminary Resulted Blood Peripheral NO GROWTH IN 1 DAY Result Diagram: 12/27/16 0412 12/27/16 0412 Imaging Last 72 hours Impressions Chest X-Ray 12/26/16 1348 Signed Impressions: Service Date/Time: Monday, December 26, 2016 13:58 - CONCLUSION: No acute disease. Luis Daniel Calderon MD Knee X-Ray 12/26/16 0000 Signed Impressions: Service Date/Time: Monday, December 26, 2016 14:07 - CONCLUSION: No acute disease. Luis Daniel Calderon MD Knee MRI 12/26/16 0000 Signed Impressions: Service Date/Time: Monday, December 26, 2016 15:50 - CONCLUSION: Findings are characteristic of cellulitis in the subcutaneous soft tissues of the prepatellar and infrapatellar soft tissues. There is a moderate degree of peripheral contrast enhancement and an elongated central cystic suggesting possible early abscess formation. No drainable fluid collection seen however. Small knee effusion. No osseous abnormality seen. Juan Luis Hodges MD Assessment & Plan Assessment and Plan 26-year-old female with a history of IV drug abuse presented with a few day history of right knee pain and swelling. She is still able to bear weight on the right lower extremity. She was seen a few days ago at [facility] where she was diagnosed with cellulitis and discharged on antibiotics which she did not take. On exam, she is grossly neurovascularly intact, has some mild cellulitic changes over the infrapatellar area. There is no effusion or fluctuance. Her range of motion is good although guarded. At this point, no clinical evidence of septic arthritis, there is no need for any surgical intervention. This is likely prepatellar bursitis with overlying cellulitis which should resolve with medical management and IV antibiotics. Physical therapy for knee range of motion, gait training and balance. Follow-up with her primary care in 2 weeks. Triston Adams Jr., MD Dec 27, 2016 17:41
[2016-12-28] VITALS: BP 114/72; PULSE 95; RESP 18; TEMP 97; O2SAT 99
[2016-12-28] MEDS: ACETAMINOPHEN 1000 MG/100 ML VIAL IV SCH ×5 (00:46→23:49)
[2016-12-28] MEDS: PIPERACIL-TAZO 3.375 GM PREMIX 50 ML IV SCH ×4 (02:00→20:45)
[2016-12-28] MEDS: MORPHINE SULFATE 4 MG/ML INJ IV PUSH PRN ×6 (02:00→23:48)
[2016-12-28] MEDS ORDERED: PHARMACY ORDERED LAB ONE (02:45)
[2016-12-28] MEDS: VANCOMYCIN 1,000 MG/NS 250 ML IV SCH ×6 (02:54→22:04)
[2016-12-28 04:00] VITALS: BP 118/75; PULSE 81; RESP 18; TEMP 96.7; O2SAT 100
[2016-12-28] MEDS: SODIUM CHLORIDE 0.9% FLUSH 10 ML FLUSH IV FLUSH SCH ×2 (07:33→20:45)
[2016-12-28 08:00] VITALS: BP 111/66; PULSE 85; PULSE 87; RESP 16; TEMP 95.8; O2SAT 98
[2016-12-28] MEDS: SODIUM CHLOR 0.9% 1000 ML INJ 1,000 ML IV SCH ×2 (08:30→18:14)
[2016-12-28] MEDS: DOCUSATE SODIUM 50 MG/SENNA 8.6 MG TAB PO SCH ×2 (08:53→20:44)
[2016-12-28] MEDS: MULTIVITAMIN TAB PO SCH (08:53)
[2016-12-28] MEDS: FOLIC ACID 1 MG TAB PO SCH (08:53)
[2016-12-28] MEDS: THIAMINE HCL 100 MG TAB PO SCH (08:53)
--- NOTE | 2016-12-28 09:43 | HHI.FPPN ---
Subjective Remarks No acute events overnight. Tmax 100.9F past 24 hours. Tachycardia resolving. Patient continues to report right knee pain that is similar severity from previous days. Denies bleeding, drainage, or pus from the site. Denies fevers, CP, SOB. (John Garcia MD R1) Objective Vitals Vital Signs Date Time Temp Pulse Resp B/P Pulse Ox O2 Delivery O2 Flow Rate FiO2 12/28/16 08:00 95.8 87 16 111/66 98 12/28/16 08:00 85 12/28/16 04:00 96.7 81 18 118/75 100 12/28/16 00:00 97.0 95 18 114/72 99 12/27/16 20:00 96.9 105 18 110/61 97 12/27/16 20:00 107 12/27/16 18:35 18 12/27/16 18:09 18 12/27/16 16:00 100.2 111 19 128/65 95 12/27/16 12:00 100.9 107 17 105/57 96 12/27/16 11:21 21 I/O 12/27/16 12/27/16 12/27/16 12/28/16 12/28/16 12/28/16 07:00 15:00 23:00 07:00 15:00 23:00 Intake Total 807 ml 961 ml 240 ml 1850 ml Output Total 200 ml 200 ml Balance 607 ml 761 ml 240 ml 1850 ml Intake Oral 120 ml 0 ml 240 ml IV Total 687 ml 961 ml 1850 ml Output Urine Total 200 ml 200 ml # Bowel Movements 0 0 0 (John Garcia MD R1) Result Diagram: 12/27/1641112/27/16411 Objective Remarks GENERAL: NAD at rest, mild/moderate distress during examination of right knee SKIN: Erythematous, warmth, swollen right knee. Initial affected area measuring 10cm x 11cm, now spreading inferiorly about 2-3cm. No effusion, no fluctuance. No open lesions; no site of bleeding or drainage. EYES: EOMI. No injection. CARDIOVASCULAR: Regular rate and rhythm. Faint systolic murmur. no rubs or gallops. RESPIRATORY: Clear to auscultation. Breath sounds equal bilaterally. No wheezes , rales, or rhonchi. GASTROINTESTINAL: Abdomen soft, non-tender, nondistended. No hepato-splenomegaly , or palpable masses. No guarding. MUSCULOSKELETAL: Pulses 2+ bilaterally in lower extremities . Right knee tenderness upon palpation. Pain upon right leg movement. Thigh and calf compartments are soft. NEUROLOGICAL: Awake and alert. Motor grossly normal. Sensation intact. ( John Garcia MD R1) A/P Assessment and Plan 26 yr old F presenting to the hospital with fever, right knee pain and swelling , admitted for sepsis and cellulitis Discharge Planning CM consulted to assist with outpatient follow up (John Garcia MD R1) Attending Attestation Pt. examined and case discussed with resident physicians I have read the above note and agree with the assessment/plan as discussed with me I was involved in all medical decision making for this patient Jluis Deleon MD (Jluis Deleon MD) Problem List: (1) Sepsis Status: Acute Plan: Pt met sepsis criteria upon admission Antibiotics: - Vancomycin 1000 mg IV q12h (started 12/26) - Zosyn 3.375 IV q6h (started 12/26) Pain control Ofirmev 1,000 MG IV q6h Morphine 4 mg IV q4h PRN (pain 6-10) Morphine 2mg IV q4h for breakthrough pain Acetaminophen 650 mg PO q4h PRN Temp >100.4 Blood cultures from 12/26 no growth after 2 days - Consider de-escalating antibiotic therapy once symptoms and erythema improve Echo showing normal LV size, mild concentric LV hypertrophy, no regional wall motion abnormalities present - No MV regurg, no AV regurg or stenosis - Trace TV regurg - No vegetations noted ESR elevated 33 CRP elevated at 15.40 CXR negative UDS positive for opiates and amphetamines (2) Cellulitis of right knee Status: Acute Plan: Knee MRI showed cellulitis in the subcutaneous soft tissues of the prepatellar and infrapatellar soft tissues. There is a moderate degree of peripheral contrast enhancement and elongated central cystic suggesting possible early abscess formation. No drainable fluid collection seen. Attempted aspiration of the right knee by the ED physician did not yield any aspirate to send for culture Patient started Vancomycin and Zosyn as above Orthopedics consulted, recommending PT and medical management with IV antibiotics - Follow up with PCP in 2 weeks GC and chlamydia PCR negative Knee x-ray negative HIV pending Hepatitis panel pending (3) Alcohol abuse Status: Acute Plan: CIWA protocol Continue PO MV, thiamine, folic acid Consult CT-etoh abuse DC plan (4) Nutrition, metabolism, and development symptoms Status: Acute Plan: Fluids: MIVF Electrolytes: monitor and replete as necessary Diet: Regular (John Garcia MD R1) Problem List: (1) Sepsis Status: Acute Plan: Pt met sepsis criteria upon admission Antibiotics: - Vancomycin 1000 mg IV q12h (started 12/26) - Zosyn 3.375 IV q6h (started 12/26) Pain control Ofirmev 1,000 MG IV q6h Morphine 4 mg IV q4h PRN (pain 6-10) Morphine 2mg IV q4h for breakthrough pain Toradol every 6 hours as needed Acetaminophen 650 mg PO q4h PRN Temp >100.4 Blood cultures from 12/26 no growth after 2 days - Consider de-escalating antibiotic therapy once symptoms and erythema improve Echo showing normal LV size, mild concentric LV hypertrophy, no regional wall motion abnormalities present - No MV regurg, no AV regurg or stenosis - Trace TV regurg - No vegetations noted ESR elevated 33 CRP elevated at 15.40 CXR negative UDS positive for opiates and amphetamines (2) Cellulitis of right knee Status: Acute Plan: Knee MRI showed cellulitis in the subcutaneous soft tissues of the prepatellar and infrapatellar soft tissues. There is a moderate degree of peripheral contrast enhancement and elongated central cystic suggesting possible early abscess formation. No drainable fluid collection seen. Attempted aspiration of the right knee by the ED physician did not yield any aspirate to send for culture Patient started Vancomycin and Zosyn as above Orthopedics consulted, recommending PT and medical management with IV antibiotics - Follow up with PCP in 2 weeks GC and chlamydia PCR negative Knee x-ray negative HIV pending Hepatitis panel pending (3) Hepatitis C antibody test positive Status: Acute Plan: Hepatitis profile positive for hepatitis C antibody - Obtain RNA Quant and RNA genotype Likely to follow with GI as an outpatient (4) IV drug user Status: Acute Plan: Hepatitis panel drawn and shows reactivity to hepatitis C antibody - Obtain hepatitis C RNA Quant and RNA genotype HIV test negative (5) Alcohol abuse Status: Acute Plan: CIWA protocol Continue PO MV, thiamine, folic acid Consult CT-etoh abuse DC plan (6) Nutrition, metabolism, and development symptoms Status: Acute Plan: Fluids: MIVF Electrolytes: monitor and replete as necessary Diet: Regular (Jluis Deleon MD) John Garcia MD R1 Dec 28, 2016 09:43 Jluis Deleon MD Dec 28, 2016 16:49
[2016-12-28 10:40] LABS: AUTOMATED NEUTROPHIL # 4.4 TH/MM3 (1.8-7.7); BASOPHIL % 0.2 % (0.0-2.0); EOSINOPHIL # 0.1 TH/MM3 (0-0.4); EOSINOPHIL % 2.4 % (0.0-4.0); HEMATOCRIT 34.4 % (35.0-46.0); HEMO FLAGS DIFF FINAL; LYMPH % 18.7 % (9.0-44.0); LYMPHOCYTE # 1.1 TH/MM3 (1.0-4.8); MEAN CELL VOLUME 95.6 FL (80.0-100.0); MEAN CORPUSCULAR HEMOGLOBIN 31.5 PG (27.0-34.0); MEAN CORPUSCULAR HGB CONC 32.9 % (32.0-36.0); MONO % 6.9 % (0.0-8.0); NEUT % 71.8 % (16.0-70.0); PLATELET COUNT 119 TH/MM3 (150-450); RED BLOOD COUNT 3.59 MIL/MM3 (4.00-5.30); RED CELL DISTRIBUTION WIDTH 14.1 % (11.6-17.2); WHITE BLOOD COUNT 6.1 TH/MM3 (4.0-11.0)
[2016-12-28 11:08] LABS: BICARBONATE 26.4 MEQ/L (21.0-32.0); POTASSIUM 3.5 MEQ/L (3.5-5.1)
[2016-12-28 12:00] VITALS: BP 97/61; PULSE 93; RESP 16; TEMP 97.3; O2SAT 95
[2016-12-28 15:00] VITALS: PULSE 85
[2016-12-28 20:00] VITALS: BP 93/60; PULSE 112; PULSE 96; RESP 18; TEMP 98.5; O2SAT 95
[2016-12-29] VITALS: BP 117/68; PULSE 100; RESP 18; TEMP 100.1; O2SAT 94
[2016-12-29] MEDS: PIPERACIL-TAZO 3.375 GM PREMIX 50 ML IV SCH ×3 (01:34→09:31)
[2016-12-29] MEDS: SODIUM CHLOR 0.9% 1000 ML INJ 1,000 ML IV SCH ×2 (01:35→12:12)
[2016-12-29 04:00] VITALS: BP 119/65; PULSE 82; RESP 18; TEMP 98.8; O2SAT 96
[2016-12-29] MEDS: VANCOMYCIN 1,000 MG/NS 250 ML IV SCH ×2 (04:35)
[2016-12-29] MEDS ORDERED: PHARMACY ORDERED LAB ONE (04:45)
[2016-12-29 05:29] LABS: BICARBONATE 28.4 MEQ/L (21.0-32.0); POTASSIUM 3.6 MEQ/L (3.5-5.1)
[2016-12-29 05:30] LABS: VANCOMYCIN TROUGH 9.8 MCG/ML (5.0-10.0)
[2016-12-29 05:40] LABS: AUTOMATED NEUTROPHIL # 4.5 TH/MM3 (1.8-7.7); BASOPHIL % 0.3 % (0.0-2.0); EOSINOPHIL # 0.1 TH/MM3 (0-0.4); EOSINOPHIL % 2.2 % (0.0-4.0); HEMATOCRIT 32.6 % (35.0-46.0); HEMO FLAGS DIFF FINAL; LYMPHOCYTE # 1.4 TH/MM3 (1.0-4.8); MEAN CELL VOLUME 94.1 FL (80.0-100.0); MONO % 10.5 % (0.0-8.0); PLATELET COUNT 157 TH/MM3 (150-450); RED BLOOD COUNT 3.47 MIL/MM3 (4.00-5.30); WHITE BLOOD COUNT 6.9 TH/MM3 (4.0-11.0)
[2016-12-29] MEDS: ACETAMINOPHEN 1000 MG/100 ML VIAL IV SCH ×3 (06:34→18:04)
[2016-12-29 08:00] VITALS: BP 122/70; PULSE 82; PULSE 92; RESP 17; TEMP 100.6; O2SAT 93
[2016-12-29] MEDS: DOCUSATE SODIUM 50 MG/SENNA 8.6 MG TAB PO SCH ×2 (08:56→20:41)
[2016-12-29] MEDS: MULTIVITAMIN TAB PO SCH (08:56)
[2016-12-29] MEDS: FOLIC ACID 1 MG TAB PO SCH (08:56)
[2016-12-29] MEDS: THIAMINE HCL 100 MG TAB PO SCH (08:56)
[2016-12-29] MEDS: SODIUM CHLORIDE 0.9% FLUSH 10 ML FLUSH IV FLUSH SCH ×2 (08:58→20:40)
[2016-12-29] MEDS ORDERED: KETOROLAC TROMETHAMINE 60 MG/2 ML (IM) VIAL IM ONE (09:05)
--- NOTE | 2016-12-29 09:26 | RADRPT ---
EXAM DATE/TIME: 12/29/2016 08:13 [facility] COMPARISON: No previous studies available for comparison. INDICATIONS : Hepatitis C. MEDICAL HISTORY : Hepatitis C. Bipolar. SURGICAL HISTORY : None. ENCOUNTER: Initial ACUITY: 1 day PAIN SCORE: 0/10 LOCATION: Abdomen. MEASUREMENTS: LIVER: 17.2 cm length COMMON DUCT: 3 mm RIGHT KIDNEY: 7.6 x 2.3 x 2.6 cm SPLEEN: 11.6 cm length FINDINGS: LIVER: Liver is enlarged measuring up to 17 cm in length without evidence for focal mass or significant intr ahepatic ductal dilatation. COMMON DUCT: No intraluminal mass or stone visualized. GALLBLADDER: There is gallbladder wall thickening measuring up to 7 mm with trace pericholecystic fluid. No gallst ones or sonographic Pappas sign. PANCREAS: The visualized portions are within normal limits. RIGHT KIDNEY: Right kidney appears atrophic with an anechoic cyst in near the superior pole measuring 1.6 x 1.5 x 1 .8 cm. SPLEEN: No focal lesion. CONCLUSION: 1. Hepatomegaly without evidence for focal mass consistent with early changes of hepatitis. 2. Gallbladder wall thickening and trace pericholecystic fluid. This is commonly seen in hepatitis pa tients. 3. Atrophic right kidney with simple appearing cyst in the superior pole. Nicola Moran MD on December 29, 2016 at 9:19 Board Certified Radiologist. This report was verified electronically.
[2016-12-29] MEDS: MORPHINE SULFATE 4 MG/ML INJ IV PUSH PRN ×4 (09:30→21:40)
--- NOTE | 2016-12-29 10:33 | HHI.FPPN ---
Subjective Remarks Patient continues to complain of pain in the right knee associated with swelling , feels that it is gotten slightly better but the redness has spread down her leg and upper thigh somewhat. She also complains of pain in her back which is chronic in nature as well as pain in her left arm due to her IV infiltrating. She did have her IV replaced with vascular ultrasound this morning. She did have a fever with a MAXIMUM TEMPERATURE of 100.6 this morning. She endorses nausea with one episode of vomiting yesterday but denies hematemesis. Objective Vitals Vital Signs Date Time Temp Pulse Resp B/P Pulse Ox O2 Delivery O2 Flow Rate FiO2 12/29/16 09:35 18 12/29/16 08:00 100.6 92 17 122/70 93 12/29/16 04:00 98.8 82 18 119/65 96 12/29/16 00:00 100.1 100 18 117/68 94 12/28/16 20:00 112 12/28/16 20:00 98.5 96 18 93/60 95 12/28/16 18:43 16 12/28/16 15:00 85 12/28/16 12:00 97.3 93 16 97/61 95 I/O 12/28/16 12/28/16 12/28/16 12/29/16 12/29/16 12/29/16 07:00 15:00 23:00 07:00 15:00 23:00 Intake Total 1850 ml 2235 ml Balance 1850 ml 2235 ml Intake Oral 1300 ml IV Total 1850 ml 935 ml # Voids 2 2 2 # Bowel Movements 0 Result Diagram: 12/29/16 0450 12/29/16 0450 Imaging Last 72 hours Impressions Liver Ultrasound 12/29/16 0000 Signed Impressions: Service Date/Time: Thursday, December 29, 2016 08:13 - CONCLUSION: 1. Hepatomegaly without evidence for focal mass consistent with early changes of hepatitis. 2. Gallbladder wall thickening and trace pericholecystic fluid. This is commonly seen in hepatitis patients. 3. Atrophic right kidney with simple appearing cyst in the superior pole. Nicola Moran MD Chest X-Ray 12/26/16 1348 Signed Impressions: Service Date/Time: Monday, December 26, 2016 13:58 - CONCLUSION: No acute disease. Luis Daniel Calderon MD Objective Remarks GENERAL: Somewhat disheveled female who appears comfortable at rest but seems to be in pain with examination and movement SKIN: Erythematous, warmth, swollen right knee. Initial affected area measuring 10cm x 11cm, now spreading inferiorly her lower leg and superiorly upper thigh. No effusion, no fluctuance. No open lesions; no site of bleeding or drainage. She does seem to be able to move the knee a bit better today. CARDIOVASCULAR: Regular rate and rhythm. Faint systolic murmur. no rubs or gallops. RESPIRATORY: Clear to auscultation. Breath sounds equal bilaterally. No wheezes , rales, or rhonchi. GASTROINTESTINAL: Abdomen soft, non-tender, nondistended. MUSCULOSKELETAL: Pulses 2+ bilaterally in lower extremities . Right knee tenderness upon palpation. Pain upon right leg movement. Thigh and calf compartments are soft. NEUROLOGICAL: Awake and alert. Motor grossly normal. Sensation intact. A/P Assessment and Plan 26 yr old F presenting to the hospital with fever, right knee pain and swelling , admitted for sepsis and cellulitis Discharge Planning CM consulted to assist with outpatient follow up Problem List: (1) Cellulitis of right knee Status: Acute Plan: Infectious disease consulted to see if patient may be a candidate for treatment with [facility] Antibiotics: - Vancomycin 1000 mg IV q12h (12/26 - ) - Zosyn 3.375 IV q6h (12/26 - ) Pain control Ofirmev 1,000 MG IV q6h Morphine 4 mg IV q4h PRN (pain 6-10) Morphine 2mg IV q4h for breakthrough pain Toradol every 6 hours as needed Acetaminophen 650 mg PO q4h PRN Temp >100.4 Blood cultures from 12/26 no growth after 2 days - Consider de-escalating antibiotic therapy once symptoms and erythema improve Hospital workup: Echo showing normal LV size, mild concentric LV hypertrophy, no regional wall motion abnormalities present - No MV regurg, no AV regurg or stenosis - Trace TV regurg - No vegetations noted ESR elevated 33 CRP elevated at 15.40 CXR negative UDS positive for opiates and amphetamines GC and chlamydia PCR negative Knee MRI showed cellulitis in the subcutaneous soft tissues of the prepatellar and infrapatellar soft tissues. There is a moderate degree of peripheral contrast enhancement and elongated central cystic suggesting possible early abscess formation. No drainable fluid collection seen. Attempted aspiration of the right knee by the ED physician did not yield any aspirate to send for culture Orthopedics consulted, recommending PT and medical management with IV antibiotics (2) Sepsis Status: Resolved Plan: Pt met sepsis criteria upon admission with leukocytosis, fevers, and source of infection - Leukocytosis has resolved - Blood cultures have been negative - Treatment as above for cellulitis (3) Hepatitis C antibody test positive Status: Acute Plan: Hepatitis profile positive for hepatitis C antibody - Obtain RNA Quant and RNA genotype Liver ultrasound performed showing hepatomegaly without evidence for focal mass consistent with early changes of hepatitis. A bladder wall thickening and trace pericholecystic fluid, this is commonly seen in hepatitis patients. Atrophic right kidney with simple appearing cyst in the superior pole. Gastroenterology consulted to evaluate for liver biopsy and discuss further treatment options (4) IV drug user Status: Acute Plan: Hepatitis panel drawn and shows reactivity to hepatitis C antibody -Workup as above HIV test negative (5) Alcohol abuse Status: Acute Plan: CIWA protocol Continue PO MV, thiamine, folic acid (6) Nutrition, metabolism, and development symptoms Status: Acute Plan: Fluids: MIVF Electrolytes: monitor and replete as necessary Diet: Regular Jluis Deleon MD Dec 29, 2016 10:33
--- NOTE | 2016-12-29 11:57 | PD.ID.CON ---
History of Present Illness Service ID Consult Requested By Reason for Consult Evaluation and Mment of Right knee cellulitis possible bursitis. Primary Care Physician No Primary Care Physician Diagnoses: History of Present Illness is a 26-year-old female with no significant past medical history other than MRSA and chronic kidney infections. 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 She presents to the hospital with right knee swelling and pain of one-day duration. States that the right knee began hurting on the day prior to arrival without injury or trauma to the knee. She tried to work but had to leave after 2 hours due to progressive pain with walking and swelling. She and her fiancee [place] the [place] (Patient is homeless) and woke up in excruciating pain this morning with inability to move the right knee or walk on it due to pain. He dianeancee then had to call [facility] to get patient to the hospital. She endorses nausea and fevers/chills as well as warmth/redness of the knee. She has a history of IV drug use and methamphetamine use. She states her last IV drug use was >2 months ago. She states last methamphetamine use was 2 days ago. Pt. went to [facility] and obtained Xrays of the knee and was sent home on oral abx, that she did not fill or take. She reports heavy alcohol use (whiskey and beer). Last drink was yesterday around 1pm. Smokes 1 ppd. Infectious disease is consulted for evaluation and management of right knee cellulitis possible bursitis. Patient was seen by orthopedic surgery and no surgical interventions planned and signed off. Blood cultures in the hospital are negative. Overall patient appears to be clinically doing well except for low-grade temperatures. Review of Systems ROS Limitations: Poor Historian Constitutional: COMPLAINS OF: Fever, DENIES: Diaphoretic episodes, Fatigue, Weight gain, Weight loss, Chills, Dizziness, Change in appetite, Night Sweats Endocrine: DENIES: Abnorml menstrual pattern, Heat/cold intolerance, Polydipsia , Polyuria, Polyphagia Eyes: DENIES: Blurred vision, Diplopia, Eye inflammation, Eye pain, Vision loss , Photosensitivity, Double Vision Ears, nose, mouth, throat: DENIES: Tinnitus, Hearing loss, Vertigo, Nasal discharge, Oral lesions, Throat pain, Hoarseness, Ear Pain, Running Nose, Epistaxis, Sinus Pain, Toothache, Odynophagia Respiratory: DENIES: Apneas, Cough, Snoring, Wheezing, Hemoptysis, Sputum production, Shortness of breath Cardiovascular: DENIES: Chest pain, Palpitations, Syncope, Dyspnea on Exertion , PND, Lower Extremity Edema, Orthopnea, Claudication Gastrointestinal: DENIES: Abdominal pain, Black stools, Bloody stools, Constipation, Diarrhea, Nausea, Vomiting, Difficulty Swallowing, Anorexia Genitourinary: DENIES: Abnormal vaginal bleeding, Dysmenorrhea, Dyspareunia, Sexual dysfunction, Urinary frequency, Urinary incontinence, Urgency, Hematuria , Dysuria, Nocturia, Vaginal discharge Musculoskeletal: COMPLAINS OF: Joint pain, Stiffness, Joint Swelling, DENIES: Muscle aches, Back pain, Neck pain Integumentary: DENIES: Abnormal pigmentation, Pruritus, Rash, Nail changes, Breast masses, Breast skin changes, Nipple discharge Hematologic/lymphatic: DENIES: Bruising, Lymphadenopathy Immunologic/allergic: DENIES: Eczema, Urticaria Neurologic: DENIES: Abnormal gait, Headache, Localized weakness, Paresthesias, Seizures, Speech Problems, Tremor, Poor Balance Psychiatric: DENIES: Anxiety, Confusion, Mood changes, Depression, Hallucinations, Agitation, Suicidal Ideation, Homicidal Ideation, Delusions Past Family Social History Allergies: Coded Allergies: Bactrim (Verified Allergy, Severe, HIVES, 12/26/16) Bactroban (Verified Allergy, Severe, 12/26/16) *MDRO Multi-Drug Resistant Organism (Verified Allergy, Unknown, 12/26/16) hx mrsa Bees (Verified Adverse Reaction, Severe, Anaphylaxis, 12/26/16) Past Medical History MRSA, chronic kidney infections Past Surgical History None Reported Medications Reported Meds & Active Scripts Active No Active Prescriptions or Reported Medications Active Ordered Medications Current Medications Medications (Trade) Dose Ordered Sig/Marissa Route Start Time Stop Time Status Last Admin (NS 1000 ml Inj) 1,000 ml @ 100 mls/hr Q10H IV 12/26/16 16:00 12/29/16 12:12 (NS Flush) 2 ml UNSCH PRN IV FLUSH 12/26/16 15:45 12/27/16 09:54 (NS Flush) 2 ml BID IV FLUSH 12/26/16 21:00 (Tylenol) 650 mg Q4H PRN PO 12/26/16 15:45 12/27/16 03:14 (Zofran Inj) 4 mg Q6H PRN IVP 12/26/16 15:45 (Narcan Inj) 0.4 mg UNSCH PRN IV 12/26/16 15:45 (Jackie-Colace) 1 tab BID PO 12/26/16 21:00 12/29/16 08:56 (Milk Of Magnesia Liq) 30 ml Q12H PRN PO 12/26/16 15:45 (Senokot) 17.2 mg Q12H PRN PO 12/26/16 15:45 (Dulcolax Supp) 10 mg DAILY PRN RECTAL 12/26/16 15:45 (Lactulose Liq) 30 ml DAILY PRN PO 12/26/16 15:45 (Romazicon Inj) 0.2 mg Q1M PRN IV PUSH 12/26/16 15:45 (Ativan) 1 mg Q4H PRN PO 12/26/16 15:45 (Ativan Inj) 1 mg Q4H PRN IV PUSH 12/26/16 15:45 (Ativan) 2 mg Q2H PRN PO 12/26/16 15:45 (Ativan Inj) 2 mg Q2H PRN IV PUSH 12/26/16 15:45 (Ativan Inj) 2 mg Q1H PRN IV PUSH 12/26/16 15:45 Lorazepam 2 mg 2 mg Q15M PRN IV PUSH 12/26/16 15:45 (Vancomycin Consult Pharmacy) 0 ml @ 0 mls/hr UNSCH OTHER 12/26/16 15:45 (Morphine Inj) 4 mg Q4H PRN IV PUSH 12/26/16 15:55 12/29/16 13:26 (Morphine Inj) 2 mg Q4H PRN IV PUSH 12/26/16 18:30 (Theragran) 1 tab DAILY PO 12/27/16 09:00 12/29/16 08:56 (Vitamin B1) 100 mg DAILY PO 12/27/16 09:00 12/29/16 08:56 (Folate) 1 mg DAILY PO 12/27/16 09:00 12/29/16 08:56 Acetaminophen 1000 mg 1,000 mg Q6H IV 12/27/16 13:00 12/30/16 12:59 12/28/16 23:49 (Vancomycin Inj/ NS 500 ml Inj) 515 ml @ 250 mls/hr Q8H IV 12/29/16 12:00 12/29/16 12:17 Miscellaneous Information SPECIFIC LAB TO BE DRAWN:VANCOMYCIN TROUGH DATE TO... ONCE ONCE .XX 12/30/16 11:45 12/30/16 11:46 Family History Adopted Social History Reports being homeless for 1 year, [place]. Has mom, son , and step dad , but does not seem to be in communication with them. Works at a [employer]. Smokes 1 ppd. Heavy drinker (whiskey, beer). Reports marijuana use and meth use. Physical Exam Vital Signs Vital Signs Date Time Temp Pulse Resp B/P Pulse Ox O2 Delivery O2 Flow Rate FiO2 12/29/16 10:15 19 12/29/16 09:35 18 12/29/16 08:00 100.6 92 17 122/70 93 12/29/16 04:00 98.8 82 18 119/65 96 12/29/16 00:00 100.1 100 18 117/68 94 12/28/16 20:00 112 12/28/16 20:00 98.5 96 18 93/60 95 12/28/16 18:43 16 12/28/16 15:00 85 12/28/16 12:00 97.3 93 16 97/61 95 Physical Exam GENERAL: This is a well-nourished, well-developed patient, in no apparent distress. SKIN: No rashes, ecchymoses or lesions. Cool and dry. HEAD: Atraumatic. Normocephalic. No temporal or scalp tenderness. EYES: Pupils equal round and reactive. Extraocular motions intact. No scleral icterus. No injection or drainage. ENT: Nose without bleeding, purulent drainage or septal hematoma. Throat without erythema, tonsillar hypertrophy or exudate. Uvula midline. Airway patent. NECK: Trachea midline. Supple, nontender, no meningeal signs. CARDIOVASCULAR: Regular rate and rhythm without murmurs, gallops, or rubs. RESPIRATORY: Clear to auscultation. Breath sounds equal bilaterally. No wheezes , rales, or rhonchi. GASTROINTESTINAL: Abdomen soft, non-tender, nondistended. MUSCULOSKELETAL: Right knee and peterson area with erythema noted. No joint effusion or drainable focus. NEUROLOGICAL: Awake and alert. Psych cooperative IV line sites with no e/o infection Laboratory Laboratory Tests Test 12/29/16 04:50 White Blood Count 6.9 Red Blood Count 3.47 Hemoglobin 10.8 Hematocrit 32.6 Mean Corpuscular Volume 94.1 Mean Corpuscular Hemoglobin 31.0 Mean Corpuscular Hemoglobin 33.0 Concent Red Cell Distribution Width 14.0 Platelet Count 157 Mean Platelet Volume 8.2 Neutrophils (%) (Auto) 66.0 Lymphocytes (%) (Auto) 21.0 Monocytes (%) (Auto) 10.5 Eosinophils (%) (Auto) 2.2 Basophils (%) (Auto) 0.3 Neutrophils # (Auto) 4.5 Lymphocytes # (Auto) 1.4 Monocytes # (Auto) 0.7 Eosinophils # (Auto) 0.1 Basophils # (Auto) 0.0 CBC Comment DIFF FINAL Differential Comment Sodium Level 138 Potassium Level 3.6 Chloride Level 103 Carbon Dioxide Level 28.4 Anion Gap 7 Blood Urea Nitrogen 3 Creatinine 0.43 Estimat Glomerular Filtration 176 Rate Random Glucose 71 Calcium Level 8.6 Vancomycin Level Trough 9.8 Date/Time Procedure Status Source Growth 12/27/16 01:25 Urine Culture - Final Complete Urine Catheterized Urine 50-100,000 CFU/ML MIXED GRAM POSITIVE... 12/26/16 13:55 Aerobic Blood Culture - Preliminary Resulted Blood Peripheral NO GROWTH IN 3 DAYS 12/26/16 13:55 Anaerobic Blood Culture - Preliminary Resulted Blood Peripheral NO GROWTH IN 3 DAYS Result Diagram: 12/29/16 0450 12/29/16 0450 Imaging Last Impressions Liver Ultrasound 12/29/16 0000 Signed Impressions: Service Date/Time: Thursday, December 29, 2016 08:13 - CONCLUSION: 1. Hepatomegaly without evidence for focal mass consistent with early changes of hepatitis. 2. Gallbladder wall thickening and trace pericholecystic fluid. This is commonly seen in hepatitis patients. 3. Atrophic right kidney with simple appearing cyst in the superior pole. Nicola Moran MD Chest X-Ray 12/26/16 1348 Signed Impressions: Service Date/Time: Monday, December 26, 2016 13:58 - CONCLUSION: No acute disease. Luis Daniel Calderon MD Knee X-Ray 12/26/16 0000 Signed Impressions: Service Date/Time: Monday, December 26, 2016 14:07 - CONCLUSION: No acute disease. Luis Daniel Calderon MD Knee MRI 12/26/16 0000 Signed Impressions: Service Date/Time: Monday, December 26, 2016 15:50 - CONCLUSION: Findings are characteristic of cellulitis in the subcutaneous soft tissues of the prepatellar and infrapatellar soft tissues. There is a moderate degree of peripheral contrast enhancement and an elongated central cystic suggesting possible early abscess formation. No drainable fluid collection seen however. Small knee effusion. No osseous abnormality seen. Juan Luis Hodges MD Assessment and Plan Assessment and Plan Cellulitis, bursitis of right knee. Likely MSSA or MRSA or Strep. Prior h/o IVDA Homelessness Hepatitis C positive Recs Clinically no joint effusion or drainable focus. Appears to be a skin or bursa process. Recommend Doppler LE r/o DVT. If DVT ruled out recommend RAMON wraps. Possible discharge tomorrow on [place]. Will complete form in am after I reassess the patient. d/w d/w Case management Veronique Jansen. Carmen Jerome MD Dec 29, 2016 11:57
[2016-12-29 12:00] VITALS: BP 113/62; PULSE 79; RESP 17; TEMP 97.1; O2SAT 95
[2016-12-29] MEDS: VANCOMYCIN INJ 1,500 MG in SODIUM CHLORID 0.9% 500 ML INJ 500 ML IV SCH ×2 (12:17→20:40)
--- NOTE | 2016-12-29 14:27 | RADRPT ---
EXAM DATE/TIME: 12/29/2016 13:31 [facility] COMPARISON: No previous studies available for comparison. INDICATIONS : Cellulitis right leg. MEDICAL HISTORY : Asthma. Dyspnea. Bipolar. ADHD. Anemia. SURGICAL HISTORY : Blevins teeth extraction. ENCOUNTER: Initial ACUITY: 1 day PAIN SCORE: 8/10 LOCATION: Right leg. TECHNIQUE: Venous ultrasound of the leg was performed from the inguinal ligament to the proximal calf. Real-rigoberto e, color Doppler and spectral tracing, compression and augmentation techniques were used. FINDINGS: There is normal compressibility of the deep venous system from the inguinal region to the proximal ca lf. No echogenic clot is seen in the lumen of the common femoral, femoral, popliteal, and posterior tibial veins. There is a normal response of the venous system to proximal and distal augmentation an d respiration. CONCLUSION: No DVT is identified in the right lower extremity. Chalo Agosto MD on December 29, 2016 at 14:25 Board Certified Radiologist. This report was verified electronically.
[2016-12-29 16:00] VITALS: BP 129/74; PULSE 80; RESP 17; TEMP 97.6; O2SAT 97
--- NOTE | 2016-12-29 16:27 | PD.CONS ---
HPI History of Present Illness This is a 26 year old female patient who presented to [facility] ER on 12/26/16 with a one day history of right knee and swelling. She reports that she has associated fevers and chills with an episode of nonbloody emesis on Wednesday. She also reports some right upper quadrant and mid abdominal pain that she describes as a dull ache that radiates to her back. This is aggravated by taking a deep breath and movement. She reports that she has been constipated and did not have a bowel movement for 5 days, but states that she did have a normal bowel movement earlier today and there was no blood or mucous. She states that she went to [facility] on Wednesday and was seen in the emergency room and discharged home with prescriptions for antibiotics and pain medicines, but she was unable to get these filled because she was in too much pain to move. [place] the [place] and states she was in so much pain, she could not get up and stayed in the heat until she was brought to the ER for further evaluation. She was admitted with sepsis and cellulitis of the right knee. She was noted to have elevated LFTs and a hepatitis profile revealed antibodies for Hepatitis C. She denies any known history of hepatitis or liver disease. She does reports that she tried methamphetamines 1-2 months ago. She reports that she used to drink heavily- 24 beers and a bottle of liquor per day , but recently cut down to a few beers daily. She last used IV drugs about one month ago (Meth). She has 6 tattoos, none of them knew, although several were done in a home setting. She denies any new sexual contacts, but states she was recently told by the girlfriend of her exboyfriend that they had hepatitis C. She denies any use of acetaminophen other than occasional excedrin use. ( Caridad Pop) PFSH Past Medical History Hx MRSA infections Hx kidney infections Past Surgical History None (Caridad Pop) Coded Allergies: Bactrim (Verified Allergy, Severe, HIVES, 12/26/16) Bactroban (Verified Allergy, Severe, 12/26/16) *MDRO Multi-Drug Resistant Organism (Verified Allergy, Unknown, 12/26/16) hx mrsa Bees (Verified Adverse Reaction, Severe, Anaphylaxis, 12/26/16) Medications Allergies Coded Allergies Type Severity Reaction Last Updated Verified Bactrim Allergy Severe HIVES 12/26/16 Yes Bactroban Allergy Severe 12/26/16 Yes *MDRO Multi-Drug Resistant Organism Allergy Unknown 12/26/16 Yes Bees Adverse Reaction Severe Anaphylaxis 12/26/16 Yes Active Scripts Medications Dose Route/Sig Days Date Category No Active Prescriptions or Reported Medications Rx Family History Adopted. Social History Smokes1 ppd. Heavy drinker up until recently was drinking 24 beers and a bottle of liquor daily, but recently cut back to a few beers daily. Reports marijuana use and meth use. (Caridad Pop) Review of Systems Constitutional: COMPLAINS OF: Fever, Chills, DENIES: Fatigue Respiratory: DENIES: Cough, Shortness of breath Cardiovascular: DENIES: Chest pain Gastrointestinal: COMPLAINS OF: Abdominal pain, Nausea, Vomiting, DENIES: Black stools, Bloody stools, Constipation, Diarrhea, Anorexia, Swelling of Abdomen, Heartburn, Hematemesis Musculoskeletal: COMPLAINS OF: Joint pain, Joint Swelling Hematologic/lymphatic: DENIES: Bruising Neurologic: DENIES: Headache Psychiatric: DENIES: Confusion (Caridad Pop) GI Exam Vitals I&O Vital Signs Date Time Temp Pulse Resp B/P Pulse Ox O2 Delivery O2 Flow Rate FiO2 12/29/16 13:31 18 12/29/16 12:00 97.1 79 17 113/62 95 12/29/16 10:15 19 12/29/16 08:00 100.6 92 17 122/70 93 12/29/16 04:00 98.8 82 18 119/65 96 12/29/16 00:00 100.1 100 18 117/68 94 12/28/16 20:00 112 12/28/16 20:00 98.5 96 18 93/60 95 12/28/16 18:43 16 I/O 12/28/16 12/28/16 12/28/16 12/29/16 12/29/16 12/29/16 06:59 14:59 22:59 06:59 14:59 22:59 Intake Total 1850 ml 2235 ml 1920 ml Balance 1850 ml 2235 ml 1920 ml Intake Oral 1300 ml 1920 ml IV Total 1850 ml 935 ml # Voids 2 2 2 5 # Bowel Movements 0 1 Imaging Last Impressions Lower Extremity Ultrasound 12/29/16 0000 Signed Impressions: Service Date/Time: Thursday, December 29, 2016 13:31 - CONCLUSION: No DVT is identified in the right lower extremity. Chalo Agosto MD Liver Ultrasound 12/29/16 0000 Signed Impressions: Service Date/Time: Thursday, December 29, 2016 08:13 - CONCLUSION: 1. Hepatomegaly without evidence for focal mass consistent with early changes of hepatitis. 2. Gallbladder wall thickening and trace pericholecystic fluid. This is commonly seen in hepatitis patients. 3. Atrophic right kidney with simple appearing cyst in the superior pole. Nicola Moran MD Chest X-Ray 12/26/16 1348 Signed Impressions: Service Date/Time: Monday, December 26, 2016 13:58 - CONCLUSION: No acute disease. Luis Daniel Calderon MD Knee X-Ray 12/26/16 0000 Signed Impressions: Service Date/Time: Monday, December 26, 2016 14:07 - CONCLUSION: No acute disease. Luis Daniel Calderon MD Knee MRI 12/26/16 0000 Signed Impressions: Service Date/Time: Monday, December 26, 2016 15:50 - CONCLUSION: Findings are characteristic of cellulitis in the subcutaneous soft tissues of the prepatellar and infrapatellar soft tissues. There is a moderate degree of peripheral contrast enhancement and an elongated central cystic suggesting possible early abscess formation. No drainable fluid collection seen however. Small knee effusion. No osseous abnormality seen. Juan Luis Hodges MD Laboratory Test 12/29/16 04:50 White Blood Count 6.9 TH/MM3 Red Blood Count 3.47 MIL/MM3 Hemoglobin 10.8 GM/DL Hematocrit 32.6 % Mean Corpuscular Volume 94.1 FL Mean Corpuscular Hemoglobin 31.0 PG Mean Corpuscular Hemoglobin 33.0 % Concent Red Cell Distribution Width 14.0 % Platelet Count 157 TH/MM3 Mean Platelet Volume 8.2 FL Neutrophils (%) (Auto) 66.0 % Lymphocytes (%) (Auto) 21.0 % Monocytes (%) (Auto) 10.5 % Eosinophils (%) (Auto) 2.2 % Basophils (%) (Auto) 0.3 % Neutrophils # (Auto) 4.5 TH/MM3 Lymphocytes # (Auto) 1.4 TH/MM3 Monocytes # (Auto) 0.7 TH/MM3 Eosinophils # (Auto) 0.1 TH/MM3 Basophils # (Auto) 0.0 TH/MM3 CBC Comment DIFF FINAL Differential Comment Sodium Level 138 MEQ/L Potassium Level 3.6 MEQ/L Chloride Level 103 MEQ/L Carbon Dioxide Level 28.4 MEQ/L Anion Gap 7 MEQ/L Blood Urea Nitrogen 3 MG/DL Creatinine 0.43 MG/DL Estimat Glomerular Filtration 176 ML/MIN Rate Random Glucose 71 MG/DL Calcium Level 8.6 MG/DL Vancomycin Level Trough 9.8 MCG/ML Date/Time Procedure Status Source Growth 12/27/16 01:25 Urine Culture - Final Complete Urine Catheterized Urine 50-100,000 CFU/ML MIXED GRAM POSITIVE... 12/26/16 13:55 Aerobic Blood Culture - Preliminary Resulted Blood Peripheral NO GROWTH IN 3 DAYS 12/26/16 13:55 Anaerobic Blood Culture - Preliminary Resulted Blood Peripheral NO GROWTH IN 3 DAYS Physical Examination HEENT: Normocephalic; atraumatic; no jaundice. CHEST: CTA CARDIAC: Regular rate and rhythm with no murmur gallop or rubs. ABDOMEN: Soft, nondistended, nontender; no hepatosplenomegaly; bowel sounds are present in all four quadrants. 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 (Caridad Pop) Assessment and Plan Plan ASSESSMENT: - Elevated LFTs. Liver Ultrasound (12/29/16)-----> 1. Hepatomegaly without evidence for focal mass consistent with early changes of hepatitis. 2. Gallbladder wall thickening and trace pericholecystic fluid. This is commonly seen in hepatitis patients. 3. Atrophic right kidney with simple appearing cyst in the superior pole. LFT on 12/26 T. Bili 0.7, AST 76, ALT 173, Alk phosph 136. Hepatitis profile (+) for hepatitis C antibodies. (+) IVDA, Meth states one month ago. Was drinking 24 beers and a bottle of liquor daily, but states she cut this back to 2 beers daily. - Hepatitis C Antibodies, Genotype and viral load pending. - Sepsis. Bcx no growth 3 days. Vanco. - Right knee cellulitis. Vanco. - Anemia. 10.8/32.6. No blood loss. - Na 129, K+ 3.2. PLAN: - [facility] - Rpt. LFTs - Await Genotype and viral load - Recommend complete ETOH/Drug cessation- d/w patient - Supportive care - Further recommendations to follow based on results of above - Pt seen and examined by Dr. Talbot and myself and this note is written on her behalf (Caridad Pop) Physician Comments seen, examined agree with above we will order cryoglobulins, bi , smooth muscle ab , celiac panel (Karine Talbot MD) Caridad Pop Dec 29, 2016 16:27 Karine Talbot MD Dec 29, 2016 17:55
[2016-12-29] MEDS ORDERED: REMOVE OLD PATCH T-DERMAL SCH ×2 (18:00→21:00)
[2016-12-29] MEDS: NICOTINE 21 MG/24 HR PATCH T-DERMAL SCH (18:22)
[2016-12-29 19:48] LABS: FERRITIN 122 NG/ML (8-252)
[2016-12-29 20:00] VITALS: BP 118/67; PULSE 87; RESP 16; TEMP 98; O2SAT 95
[2016-12-30] VITALS: BP 120/65; PULSE 93; RESP 16; TEMP 98.6; O2SAT 95
[2016-12-30] MEDS: SODIUM CHLOR 0.9% 1000 ML INJ 1,000 ML IV SCH ×2 (02:06→09:41)
[2016-12-30] MEDS: ACETAMINOPHEN 1000 MG/100 ML VIAL IV SCH (02:06)
[2016-12-30] MEDS: MORPHINE SULFATE 4 MG/ML INJ IV PUSH PRN ×2 (02:07→06:05)
[2016-12-30] MEDS: VANCOMYCIN INJ 1,500 MG in SODIUM CHLORID 0.9% 500 ML INJ 500 ML IV SCH ×2 (05:09→13:10)
[2016-12-30 08:00] VITALS: BP 146/95; PULSE 77; RESP 19; TEMP 98.4; O2SAT 100
[2016-12-30] MEDS ORDERED: ACETAMINOPHEN 325 MG TAB PO PRN (08:07)
--- NOTE | 2016-12-30 08:07 | HHI.FPPN ---
Subjective Remarks No acute events overnight. Tmax 100.6F over past 24 hours. Vital signs otherwise within normal limits. Patient states her pain is tolerable. She believes her range of motion with her right knee is improving. Denies fevers, chills, CP, SOB. Patient otherwise without complaints this morning. (John Garcia MD R1) Objective Vitals Vital Signs Date Time Temp Pulse Resp B/P Pulse Ox O2 Delivery O2 Flow Rate FiO2 12/30/16 00:00 98.6 93 16 120/65 95 12/29/16 21:45 18 12/29/16 20:00 98.0 87 16 118/67 95 12/29/16 16:00 97.6 80 17 129/74 97 12/29/16 15:11 18 12/29/16 12:00 97.1 79 17 113/62 95 12/29/16 10:15 19 12/29/16 08:00 82 12/29/16 08:00 100.6 92 17 122/70 93 I/O 12/29/16 12/29/16 12/29/16 12/30/16 12/30/16 12/30/16 07:00 15:00 23:00 07:00 15:00 23:00 Intake Total 1920 ml 1449 ml Balance 1920 ml 1449 ml Intake Oral 1920 ml IV Total 1449 ml # Voids 2 5 2 1 # Bowel Movements 1 (John Garcia MD R1) Result Diagram: 12/29/16 0450 12/29/16 0450 Objective Remarks GENERAL: Somewhat disheveled female who appears comfortable at rest but in mild to moderate pain with examination and movement SKIN: Erythematous, warmth, swollen right knee; erythema and edema improved from prior examination. Initial affected area measuring 10cm x 11cm on admission now noted to be decreased in area. No effusion, no fluctuance. No open lesions; no site of bleeding or drainage. Continues to display increased range of motion with her right knee. CARDIOVASCULAR: Regular rate and rhythm. Faint early systolic murmur LUSB. No rubs or gallops. RESPIRATORY: Clear to auscultation. Breath sounds equal bilaterally. No wheezes , rales, or rhonchi. GASTROINTESTINAL: Abdomen soft, non-tender, nondistended. MUSCULOSKELETAL: Pulses 2+ bilaterally in lower extremities . Right knee tenderness upon palpation. Pain upon right leg movement. Thigh and calf compartments are soft. NEUROLOGICAL: Awake and alert. Motor grossly normal. Sensation intact. ( John Garcia MD R1) A/P Assessment and Plan 26 yr old F presenting to the hospital with fever, right knee pain and swelling , admitted for sepsis due to cellulitis. Discharge Planning CM consulted to assist with outpatient follow up Anticipate discharge following further workup per GI ID arranging for Dalvance (John Garcia MD R1) Attending Attestation Pt. examined and case discussed with resident physicians I have read the above note and agree with the assessment/plan as discussed with me I was involved in all medical decision making for this patient Patient will be discharged today after being set up for a one-time dose of Dalvanz by infectious disease - Oral pain medication given to patient today, minimize IV pain medication prior to discharge Jluis Deleon MD (Jluis Deleon MD) Problem List: (1) Cellulitis of right knee Status: Acute Plan: Infectious disease consulted to see if patient may be a candidate for treatment with Dalvance Antibiotics: - Vancomycin 1,500 mg IV q8h (12/26 - ) Antibiotic History: - Zosyn 3.375 IV q6h (12/26 - 12/29) Pain control - Oxycodone 10 mg po q8h prn pain 6-10 Discontinue IV analgesics Ofirmev and morphine Blood cultures from 12/26 no growth after 3 days Hospital workup: Echo showing normal LV size, mild concentric LV hypertrophy, no regional wall motion abnormalities present - No MV regurg, no AV regurg or stenosis - Trace TV regurg - No vegetations noted ESR elevated 33 CRP elevated at 15.40 CXR negative UDS positive for opiates and amphetamines GC and chlamydia PCR negative Knee MRI showed cellulitis in the subcutaneous soft tissues of the prepatellar and infrapatellar soft tissues. There is a moderate degree of peripheral contrast enhancement and elongated central cystic suggesting possible early abscess formation. No drainable fluid collection seen. Attempted aspiration of the right knee by the ED physician did not yield any aspirate to send for culture Orthopedics consulted, recommending PT and medical management with IV antibiotics (2) Sepsis Status: Resolved Plan: Pt met sepsis criteria upon admission with leukocytosis, fevers, and source of infection - Leukocytosis has resolved - Blood cultures have been negative - Treatment as above for cellulitis (3) Hepatitis C antibody test positive Status: Acute Plan: Hepatitis profile positive for hepatitis C antibody - Obtain RNA Quant and RNA genotype Liver ultrasound performed showing hepatomegaly without evidence for focal mass consistent with early changes of hepatitis. A bladder wall thickening and trace pericholecystic fluid, this is commonly seen in hepatitis patients. Atrophic right kidney with simple appearing cyst in the superior pole. Gastroenterology consulted to evaluate for liver biopsy and discuss further treatment options (4) IV drug user Status: Acute Plan: Hepatitis panel drawn and shows reactivity to hepatitis C antibody -HCV RNA Genotype and PCR pending -Gastroenterology consulted -Further workup per gastroenterology HIV test negative (5) Alcohol abuse Status: Acute Plan: [facility] protocol Continue PO MV, thiamine, folic acid (6) Nutrition, metabolism, and development symptoms Status: Acute Plan: Fluids: NS at 100 cc/hr Electrolytes: monitor and replete as necessary Diet: Regular (John Garcia MD R1) John Garcia MD R1 Dec 30, 2016 08:06 Jluis Deleon MD Dec 30, 2016 16:36
[2016-12-30] MEDS: SODIUM CHLORIDE 0.9% FLUSH 10 ML FLUSH IV FLUSH SCH (09:00)
--- NOTE | 2016-12-30 09:37 | HHI.DCPOC ---
Discharge Care Plan Diagnosis: (1) Cellulitis of knee, right (2) Hepatitis C antibody test positive (3) Alcohol abuse Goals to Promote Your Health * To prevent worsening of your condition and complications * To maintain your health at the optimal level Directions to Meet Your Goals Take your medications as prescribed Follow your dietary instruction Follow activity as directed Keep your appointments as scheduled Take your immunizations and boosters as scheduled If your symptoms worsen call your PCP, if no PCP go to Urgent Care Center or Emergency Room Smoking is Dangerous to Your Health. Avoid second hand smoke Call the 24-hour hour crisis hotline for domestic abuse at Aleida Landrum MD R1 Dec 30, 2016 09:37
[2016-12-30] MEDS: DOCUSATE SODIUM 50 MG/SENNA 8.6 MG TAB PO SCH (09:38)
[2016-12-30] MEDS ORDERED: CRUTMIS35 (09:38)
[2016-12-30] MEDS: FOLIC ACID 1 MG TAB PO SCH (09:39)
[2016-12-30] MEDS: THIAMINE HCL 100 MG TAB PO SCH (09:39)
[2016-12-30] MEDS: MULTIVITAMIN TAB PO SCH (09:39)
[2016-12-30] MEDS ORDERED: OXYC-259 PO (09:41)
[2016-12-30] MEDS: NICOTINE 21 MG/24 HR PATCH T-DERMAL SCH (09:41)
[2016-12-30] MEDS ORDERED: oxyCODONE HCL 10 MG CONTROLLED RELEASE TAB PO PRN (10:00)
[2016-12-30 10:38] VITALS: RESP 18
[2016-12-30] MEDS ORDERED: EPIN1INJ21 IV PUSH (11:27)
[2016-12-30] MEDS ORDERED: SOLU250I IV PUSH (11:27)
[2016-12-30] MEDS ORDERED: DALB1SOL IV (11:27)
[2016-12-30] MEDS ORDERED: EPIN1INJ21 SQ (11:27)
--- NOTE | 2016-12-30 11:30 | HHI.FF ---
Infusion Therapy Location of Infusion Therapy: Ambulatory Infusion Therapy Order Patient Information Appointment Date: Dec 30, 2016 Patient Weight 69.5 kg Diagnosis: Diagnosis Right knee and leg cellulitis Coded Allergies: Bactrim (Verified Allergy, Severe, HIVES, 12/26/16) Bactroban (Verified Allergy, Severe, 12/26/16) *MDRO Multi-Drug Resistant Organism (Verified Allergy, Unknown, 12/26/16) hx mrsa Bees (Verified Adverse Reaction, Severe, Anaphylaxis, 12/26/16) Administer Medication Dalbavancin 1500 mg IV x 1 dose only. Start Treatment: Dec 30, 2016 Stop Treatment: Dec 30, 2016 Additional Information Venous access: Peripheral Additional Instructions [x] Peripheral flush and dressing changes per protocol [x] Implanted port and central trim line worker: * Implanted port: 10 ml Normal Saline followed by 5 ml Heparin 100 units/ml Heparin flush after each use and monthly to maintain. [] May leave port accessed during therapy. [] May leave peripheral site accessed for duration of therapy. [x] If patient has SOB or respiratory distress, check oxygen saturation. If less than 90% or clinical signs of respiratory distress, administer oxygen at 2 L/min. via nasal cannula and notify physician. [x] Anaphylaxis/Reaction orders: * Stop infusion. * Keep IV line open with saline flush. * Notify physician. * Monitor vital signs every 15 minutes until symptoms resolve. * Check Oxygen saturation; Oxygen at 2 L/min. via nasal cannula if less than 90% or clinical signs of respiratory distress. * Administer diphenhydramine (Benadryl) 25 mg IV STAT, (unless patient has received as pre-med). May repeat once, if necessary. * Solu-Cortef 250 mg IVP over 30-60 seconds, use 100 mg vials for each dissolution. * Epinephrine (1mg/1 ml) 0.3 mg subcutaneously or IVP now with any signs of respiratory distress. * Check with physician for new additional pre-med orders if patient is re- challenged or re-treated. [x] May remove PICC line when treatment complete, after confirming with Physician. [x] If the patient is admitted to the hospital, the ED, or transferred via [facility] , complete transfer form including medication reconciliation order sheet. Laboratory Tests Additional Information No labs needed. If any change in clinical condition or questions call: Dr.Tanuja Jerome Counseling: Counseled about medication side effects. Carmen Jerome MD Dec 30, 2016 11:30
[2016-12-30] MEDS ORDERED: PHARMACY ORDERED LAB ONE (11:45)
--- NOTE | 2016-12-30 12:02 | HHI.GIFU ---
Subjective Remarks Resting in bed. No distress. No nausea or vomiting. No abdominal pain. States she did not eat breakfast, but states she doesn't typically eat breakfast and will eat lunch. Lab was and able to draw her blood this morning and therefore they will be coming back up to try again. Objective Vitals I&O Vital Signs Date Time Temp Pulse Resp B/P Pulse Ox O2 Delivery O2 Flow Rate FiO2 12/30/16 10:38 18 12/30/16 08:00 98.4 77 19 146/95 100 12/30/16 00:00 98.6 93 16 120/65 95 12/29/16 21:45 18 12/29/16 20:00 98.0 87 16 118/67 95 12/29/16 16:00 97.6 80 17 129/74 97 12/29/16 15:11 18 12/29/16 12:00 97.1 79 17 113/62 95 I/O 12/29/16 12/29/16 12/29/16 12/30/16 12/30/16 12/30/16 06:59 14:59 22:59 06:59 14:59 22:59 Intake Total 1920 ml 1449 ml 360 ml Balance 1920 ml 1449 ml 360 ml Intake Oral 1920 ml 360 ml IV Total 1449 ml # Voids 2 5 2 1 # Bowel Movements 1 Laboratory Date/Time Procedure Status Source Growth 12/27/16 01:25 Urine Culture - Final Complete Urine Catheterized Urine 50-100,000 CFU/ML MIXED GRAM POSITIVE... 12/26/16 13:55 Aerobic Blood Culture - Preliminary Resulted Blood Peripheral NO GROWTH IN 4 DAYS 12/26/16 13:55 Anaerobic Blood Culture - Preliminary Resulted Blood Peripheral NO GROWTH IN 4 DAYS Imaging Last Impressions Lower Extremity Ultrasound 12/29/16 0000 Signed Impressions: Service Date/Time: Thursday, December 29, 2016 13:31 - CONCLUSION: No DVT is identified in the right lower extremity. Chalo Agosto MD Liver Ultrasound 12/29/16 0000 Signed Impressions: Service Date/Time: Thursday, December 29, 2016 08:13 - CONCLUSION: 1. Hepatomegaly without evidence for focal mass consistent with early changes of hepatitis. 2. Gallbladder wall thickening and trace pericholecystic fluid. This is commonly seen in hepatitis patients. 3. Atrophic right kidney with simple appearing cyst in the superior pole. Nicola Bozorgmanesh, MD Chest X-Ray 12/26/16 1348 Signed Impressions: Service Date/Time: Monday, December 26, 2016 13:58 - CONCLUSION: No acute disease. Luis Daniel Calderon MD Knee X-Ray 12/26/16 0000 Signed Impressions: Service Date/Time: Monday, December 26, 2016 14:07 - CONCLUSION: No acute disease. Luis Daniel Calderon MD Knee MRI 12/26/16 0000 Signed Impressions: Service Date/Time: Monday, December 26, 2016 15:50 - CONCLUSION: Findings are characteristic of cellulitis in the subcutaneous soft tissues of the prepatellar and infrapatellar soft tissues. There is a moderate degree of peripheral contrast enhancement and an elongated central cystic suggesting possible early abscess formation. No drainable fluid collection seen however. Small knee effusion. No osseous abnormality seen. Juan Luis Hodges MD Physical Exam HEENT: Normocephalic; atraumatic; no jaundice. CHEST: CTA CARDIAC: RRR ABDOMEN: Soft, nondistended, nontender; no hepatosplenomegaly; bowel sounds are present in all four quadrants. EXTREMITIES: Mild right knee edema. SKIN: Normal; no rash; no jaundice. SR VICE PRESIDENT: No focal deficits; alert and oriented times three. Assessment and Plan Plan ASSESSMENT: - Elevated LFTs. Liver Ultrasound (12/29/16)-----> 1. Hepatomegaly without evidence for focal mass consistent with early changes of hepatitis. 2. Gallbladder wall thickening and trace pericholecystic fluid. This is commonly seen in hepatitis patients. 3. Atrophic right kidney with simple appearing cyst in the superior pole. LFT on 12/26 T. Bili 0.7, AST 76, ALT 173, Alk phosph 136. Hepatitis profile (+) for hepatitis C antibodies. (+) IVDA, Meth states one month ago. Was drinking 24 beers and a bottle of liquor daily, but states she cut this back to 2 beers daily. Today's LFTs pending. WILI, AMA, ASMA, Ceruloplasmin, Celiac disease, Ferritin, Iron level, Alpha 1 Antitrypsin, Cryoglobulin pending. HCV Genotype and viral load pending. - Hepatitis C Antibodies, Genotype and viral load pending. - Sepsis. Bcx no growth 4 days. Vanco. - Right knee cellulitis. Vanco. - Anemia. 10.8/32.6 on 12/29. No blood loss. - Na 129, K+ 3.2. PLAN: - ELMER - Await today's labs - Await Genotype and viral load - Await liver workup- WILI, AMA, ASMA, Ceruloplasmin, Celiac disease, Ferritin, Iron level, Alpha 1 Antitrypsin, Cryoglobulin - Recommend complete ETOH/Drug cessation- d/w patient - Okay to d/c home today if LFTs stable with outpatient followup - FU ZENAIDA 2 weeks - Pt seen and examined by Dr. Talbot and myself and this note is written on her behalf Caridad Pop Dec 30, 2016 12:01
[2016-12-30] MEDS ORDERED: ACETAMINOPHEN 1000 MG/100 ML VIAL IV PRN (13:00)
[2016-12-30 15:00] LABS: AUTOMATED NEUTROPHIL # 2.7 TH/MM3 (1.8-7.7); BASOPHIL % 0.5 % (0.0-2.0); EOSINOPHIL # 0.1 TH/MM3 (0-0.4); EOSINOPHIL % 1.7 % (0.0-4.0); HEMATOCRIT 36.5 % (35.0-46.0); HEMO FLAGS DIFF FINAL; LYMPH % 31.8 % (9.0-44.0); LYMPHOCYTE # 1.6 TH/MM3 (1.0-4.8); MEAN CELL VOLUME 95.1 FL (80.0-100.0); MEAN CORPUSCULAR HEMOGLOBIN 31.3 PG (27.0-34.0); MEAN CORPUSCULAR HGB CONC 32.9 % (32.0-36.0); MONO % 13.6 % (0.0-8.0); NEUT % 52.4 % (16.0-70.0); PLATELET COUNT 212 TH/MM3 (150-450); RED BLOOD COUNT 3.84 MIL/MM3 (4.00-5.30); RED CELL DISTRIBUTION WIDTH 14.2 % (11.6-17.2); WHITE BLOOD COUNT 5.1 TH/MM3 (4.0-11.0)
[2016-12-30 15:15] LABS: BICARBONATE 28.6 MEQ/L (21.0-32.0)
[2016-12-30 15:19] LABS: INDIRECT BILIRUBIN 0.4 MG/DL (0.0-0.8); TOTAL BILIRUBIN ADULT 0.6 MG/DL (0.2-1.0)
--- NOTE | 2016-12-30 17:50 | HHI.DS ---
Discharge Summary Admission Date Dec 26, 2016 at 15:17 Discharge Date: Dec 30, 2016 Admitting Diagnosis Sepsis 2/2 Cellulitis R Knee (1) Cellulitis of right knee Diagnosis: Principal Plan: Infectious disease consulted to see if patient may be a candidate for treatment with Dalvance Antibiotics: - Vancomycin 1,500 mg IV q8h (12/26 - ) Antibiotic History: - Zosyn 3.375 IV q6h (12/26 - 12/29) Pain control - Oxycodone 10 mg po q8h prn pain 6-10 Discontinue IV analgesics Ofirmev and morphine Blood cultures from 12/26 no growth after 3 days Hospital workup: Echo showing normal LV size, mild concentric LV hypertrophy, no regional wall motion abnormalities present - No MV regurg, no AV regurg or stenosis - Trace TV regurg - No vegetations noted ESR elevated 33 CRP elevated at 15.40 CXR negative UDS positive for opiates and amphetamines GC and chlamydia PCR negative Knee MRI showed cellulitis in the subcutaneous soft tissues of the prepatellar and infrapatellar soft tissues. There is a moderate degree of peripheral contrast enhancement and elongated central cystic suggesting possible early abscess formation. No drainable fluid collection seen. Attempted aspiration of the right knee by the ED physician did not yield any aspirate to send for culture Orthopedics consulted, recommending PT and medical management with IV antibiotics (2) Sepsis Diagnosis: Principal Plan: Pt met sepsis criteria upon admission with leukocytosis, fevers, and source of infection - Leukocytosis has resolved - Blood cultures have been negative - Treatment as above for cellulitis (3) Hepatitis C antibody test positive Diagnosis: Secondary Plan: Hepatitis profile positive for hepatitis C antibody - Obtain RNA Quant and RNA genotype Liver ultrasound performed showing hepatomegaly without evidence for focal mass consistent with early changes of hepatitis. A bladder wall thickening and trace pericholecystic fluid, this is commonly seen in hepatitis patients. Atrophic right kidney with simple appearing cyst in the superior pole. Gastroenterology consulted to evaluate for liver biopsy and discuss further treatment options (4) IV drug user Diagnosis: Secondary Plan: Hepatitis panel drawn and shows reactivity to hepatitis C antibody -HCV RNA Genotype and PCR pending -Gastroenterology consulted -Further workup per gastroenterology HIV test negative (5) Alcohol abuse Diagnosis: Secondary Plan: [facility] protocol Continue PO MV, thiamine, folic acid (6) Nutrition, metabolism, and development symptoms Diagnosis: Secondary Plan: Fluids: NS at 100 cc/hr Electrolytes: monitor and replete as necessary Diet: Regular Consultants Infectious disease, GI, orthopedic, case management Procedures none Brief History 26 yo F presenting to the hospital with right knee swelling and pain x1 day. States that the right knee began hurting on the day prior to arrival without injury or trauma to the knee. She tried to work but had to leave after 2 hours due to progressive pain with walking and swelling. [place] and woke up in excruciating pain this morning with inability to move the right knee or walk on it due to pain. He calvin then had to call [facility] to get patient to the hospital. She endorses nausea and fevers/chills as well as warmth/redness of the knee. She has a pmhx or MRSA and chronic kidney infections. She is homeless and has a history of IV drug use and methamphetamine use. She states her last IV drug use was >2 months ago. She states last methamphetamine use was 2 days ago. Pt. went to [facility] and obtained Xrays of the knee and was sent home on oral abx, that she did not fill or take. She reports heavy alcohol use ( whiskey and beer). Last drink was yesterday around 1pm. Smokes 1 ppd. CBC/BMP: 12/30/16 1416 12/30/16 1416 Significant Findings Laboratory Tests Test 12/28/16 12/28/16 12/29/16 12/30/16 02:45 10:10 04:50 14:16 Vancomycin Level Trough 4.8 MCG/ML (5.0-10.0) Red Blood Count 3.59 MIL/MM3 3.47 MIL/MM3 3.84 MIL/MM3 (4.00-5.30) (4.00-5.30) (4.00-5.30) Hemoglobin 11.3 GM/DL 10.8 GM/DL (11.6-15.3) (11.6-15.3) Hematocrit 34.4 % 32.6 % (35.0-46.0) (35.0-46.0) Platelet Count 119 TH/MM3 (150-450) Neutrophils (%) (Auto) 71.8 % (16.0-70.0) Blood Urea Nitrogen 4 MG/DL (7-18) 3 MG/DL (7-18) 2 MG/DL (7-18) Calcium Level 8.3 MG/DL (8.5-10.1) Monocytes (%) (Auto) 10.5 % 13.6 % (0.0-8.0) (0.0-8.0) Creatinine 0.43 MG/DL (0.50-1.00) Random Glucose 71 MG/DL 70 MG/DL (74-106) (74-106) Iron Level 16 MCG/DL (50-170) Potassium Level 3.0 MEQ/L (3.5-5.1) Alkaline Phosphatase 234 U/L (45-117) Albumin 2.6 GM/DL (3.4-5.0) PE at Discharge GENERAL: Somewhat disheveled female who appears comfortable at rest but in mild to moderate pain with examination and movement SKIN: Erythematous, warmth, swollen right knee; erythema and edema improved from prior examination. Initial affected area measuring 10cm x 11cm on admission now noted to be decreased in area. No effusion, no fluctuance. No open lesions; no site of bleeding or drainage. Continues to display increased range of motion with her right knee. CARDIOVASCULAR: Regular rate and rhythm. Faint early systolic murmur LUSB. No rubs or gallops. RESPIRATORY: Clear to auscultation. Breath sounds equal bilaterally. No wheezes , rales, or rhonchi. GASTROINTESTINAL: Abdomen soft, non-tender, nondistended. MUSCULOSKELETAL: Pulses 2+ bilaterally in lower extremities . Right knee tenderness upon palpation. Pain upon right leg movement. Thigh and calf compartments are soft. NEUROLOGICAL: Awake and alert. Motor grossly normal. Sensation intact. Hospital Course 26-year-old patient w/ hx of chronic homelessness, alcohol use, and IV drug use , admitted on 12/26/16 to the hospital to sepsis due to cellulitis of the right knee. Knee MRI showed subcutaneous soft tissues of the prepatellar and infrapatellar soft tissues. Orthopedic was consulted and recommend PT and medical management with IV antibiotics. Pt received vancomycin and zosyn while in the hospital. Blood cultures showed no growth in 5 days. CXR wnl, GC and chlamydia PCR negative, HIV negative. Echo no vegetation noted. ID was consulted and [facility]. She was also found to be positive for hep C while in the hospital. Liver ultrasound showed hepatomegaly without evidence for focal mass consistent with early changes of hepatitis. HCV RNA was 125 and HCV RNA genotype was still pending. Gastroenterology consulted and recommended she follow up outpatient in 1 week. Pt Condition on Discharge: Stable Discharge Disposition: Discharge Home Discharge Instructions DIET: Follow Instructions for: As Tolerated, No Restrictions Activities you can perform: Weight Bearing as Dhruv Follow up Referrals: Gastroenterology - 1 Week with Karine Talbot MD PCP Follow-up - 1 Week New Medications: Crutch/Aluminum/Adult/Axillary (Crutch/Aluminum/Adult/Axillary) 1 Mis Mis 1 EA .ROUTE DIRECTED #1 EA Oxycodone ER (Oxycontin) 10 Mg Tab 10 MG PO Q8HR Pain Management #21 TAB Aleida Landrum MD R1 Dec 30, 2016 17:50
[2016-12-30 23:52] LABS: HCV RNA PCR LOGIU/ML 2.1 (())
== END 2016-12-30 15:28 | disposition home or self-care (01) | DRG 872 ==
LOC: NEPE 13:15 → NEDA 15:17 → N07A 17:10
PROVIDERS: ADMIT Family Medicine; ATTEND Family Medicine
PROC: 0S9C3ZX Drainage of Right Knee Joint, Percutaneous Approach, Diagnostic (ICD-10-PCS; principal; 2016-12-26)
DX: A41.9 Sepsis, unspecified organism (principal); E87.1 Hypo-osmolality and hyponatremia; L03.115 Cellulitis of right lower limb; E87.6 Hypokalemia; F17.210 Nicotine dependence, cigarettes, uncomplicated; F15.90 Other stimulant use, unspecified, uncomplicated; F10.10 Alcohol abuse, uncomplicated; F12.90 Cannabis use, unspecified, uncomplicated; D64.9 Anemia, unspecified; B19.20 Unspecified viral hepatitis C without hepatic coma; M70.51 Other bursitis of knee, right knee; F31.9 Bipolar disorder, unspecified; F90.9 Attention-deficit hyperactivity disorder, unspecified type; J45.909 Unspecified asthma, uncomplicated; K59.00 Constipation, unspecified; M54.9 Dorsalgia, unspecified; G89.29 Other chronic pain; R01.1 Cardiac murmur, unspecified; Z59.0 Homelessness; Z86.14 Personal history of Methicillin resistant Staphylococcus aureus infection
CPT/HCPCS: 20610; 71010; 73560; 73723; 76705; 76937; 80048; 80053; 80074; 80076; 80202; 80307; 81001; 82103; 82390; 82728; 82784; 83516; 83520; 83540; 83605; 84702; 85025; 85652; 86038; 86140; 86255; 86703; 87040; 87086; 87491; 87522; 87591; 87902; 93306; 93971; 94150; 96365; 96367; A9579; E0113; J0131; J1885; J2270; J2543; J3370; J3480; J7030; J7040; J7050

== ENCOUNTER 2017-01-26 02:43 | Inpatient (IN) | payer SELFPAY ==
[2017-01-26] VITALS (11 sets, daily range): BP systolic 106–135; BP diastolic 60–85; PULSE 89–126; RESP 18–20; TEMP 97.5–98.3; O2SAT 98–100
[~2017-01-26 02:43] MED LIST: CRUTMIS35; OXYC-259 PO
[2017-01-26] MEDS ORDERED: IOHEXOL 350 MG/ML 10 ML VIAL (for RAD DIAG) IVCONTRAST ONE (02:44)
--- NOTE | 2017-01-26 03:38 | PD ---
HPI Chief Complaint: Flank/Kidney Pain Time Seen by Provider: 03:27 Travel History International Travel<30 days: No Contact w/Intl Traveler<30days: No Traveled to known affect area: No History of Present Illness HPI 26yo F with PMH of pyelonephritis presents to the ED with c/o bilateral lower back pain radiating to her abdomen that started an hour ago. Associated with nausea and feels like her kidney infections. Denies any fever, vomiting, chest pain, focal weakness or numbness, vaginal discharge or dysuria. PFSH Past Medical History ADHD: Yes Anemia: Yes Asthma: Yes Autoimmune Disease: No Blood Disorders: No Bipolar Disorder: Yes Anxiety: No Depression: Yes Cancer: No Cardiovascular Problems: No Cystic Fibrosis: No Diabetes: No Diminished Hearing: No Endocrine: No Genitourinary: No Immune Disorder: No Musculoskeletal: No Neurologic: No Psychiatric: Yes (BIPOLAR ) Reproductive: No Respiratory: Yes Integumentary: Yes (SCABIES) Immunizations Current: Yes Seizures: No Sickle Cell Disease: No Sleep Apnea: No Thyroid Disease: No Ulcer: No ?: Not LMP: 12/29/16 : 5 Para: 1 Miscarriage: 3 Past Surgical History Section: No Other Surgery: Yes (WIZDOM TEETH EXTRACTION ) Social History Alcohol Use: Yes ('heavely' ) Tobacco Use: Yes (1 PPD) Substance Use: Yes (IVDU) Allergies-Medications (Allergen,Severity, Reaction): Coded Allergies: mupirocin (Unverified Allergy, Severe, 01/26/17) sulfamethoxazole (Unverified Allergy, Severe, HIVES, 01/26/17) trimethoprim (Unverified Allergy, Severe, HIVES, 01/26/17) *MDRO Multi-Drug Resistant Organism (Verified Allergy, Unknown, 01/26/17) hx mrsa bee venom protein (honey bee) (Unverified Adverse Reaction, Severe, Anaphylaxis, 01/26/17) Reported Meds & Prescriptions Reported Meds & Active Scripts Active Review of Systems Except as stated in HPI: all other systems reviewed are Neg Physical Exam Narrative GENERAL: 26yo F in moderate distress. SKIN: Focused skin assessment warm/dry. HEAD: Atraumatic. Normocephalic. EYES: Pupils equal and round. No scleral icterus. No injection or drainage. ENT: No nasal bleeding or discharge. Mucous membranes pink and moist. NECK: Trachea midline. No JVD. CARDIOVASCULAR: Regular rate and rhythm. No murmur appreciated. RESPIRATORY: No accessory muscle use. Clear to auscultation. Breath sounds equal bilaterally. GASTROINTESTINAL: Abdomen soft, Diffuse ttp. Nondistended. BACK: No midline ttp. +CVA ttp bilaterally. MUSCULOSKELETAL: No obvious deformities. No clubbing. No cyanosis. No edema. NEUROLOGICAL: Awake and alert. No obvious cranial nerve deficits. Motor grossly within normal limits. Normal speech. PSYCHIATRIC: Anxious appearing. Hyperventilating. Data Data Last Documented VS Vital Signs Date Time Temp Pulse Resp B/P (MAP) Pulse Ox O2 Delivery O2 Flow Rate FiO2 01/26/17 06:11 98.1 101 20 121/81 (94) 98 Room Air Orders Orders Complete Blood Count With Diff (01/26/17 03:38) Comprehensive Metabolic Panel (01/26/17 03:38) Lipase (01/26/17 03:38) Prothrombin Time / Inr (Pt) (01/26/17 03:38) Act Partial Throm Time (Ptt) (01/26/17 03:38) Urinalysis - C+S If Indicated (01/26/17 03:38) Ct Abd/Pel W Iv Contrast(Rout) (01/26/17 03:38) Iv Access Insert/Monitor (01/26/17 03:38) Ecg Monitoring (01/26/17 03:38) Oximetry (01/26/17 03:38) Ed Urine Pregnancytest Poc (01/26/17 03:38) Ondansetron Inj (Zofran Inj) (01/26/17 03:45) Sodium Chlor 0.9% 1000 Ml Inj (Ns 1000 M (01/26/17 03:45) Morphine Inj (Morphine Inj) (01/26/17 03:45) Iohexol 350 Inj (Omnipaque 350 Inj) (01/26/17 02:44) Sodium Chlor 0.9% 1000 Ml Inj (Ns 1000 M (01/26/17 05:15) Urine Culture (01/26/17 05:35) Blood Culture (01/26/17 05:59) Lactic Acid Sepsis Protocol (01/26/17 05:59) Ceftriaxone Inj (Rocephin Inj) (01/26/17 06:00) Sodium Chlor 0.9% 1000 Ml Inj (Ns 1000 M (01/26/17 06:00) Metoclopramide Inj (Reglan Inj) (01/26/17 06:15) Admit Order (Ed Use Only) (01/26/17 06:25) Labs Laboratory Tests Test 01/26/17 03:15 01/26/17 05:35 01/26/17 06:06 White Blood Count 12.6 TH/MM3 Red Blood Count 4.41 MIL/MM3 Hemoglobin 13.2 GM/DL Hematocrit 40.0 % Mean Corpuscular Volume 90.7 FL Mean Corpuscular Hemoglobin 29.8 PG Mean Corpuscular Hemoglobin Concent 32.9 % Red Cell Distribution Width 13.4 % Platelet Count 227 TH/MM3 Mean Platelet Volume 7.6 FL Neutrophils (%) (Auto) 78.3 % Lymphocytes (%) (Auto) 17.0 % Monocytes (%) (Auto) 3.0 % Eosinophils (%) (Auto) 1.2 % Basophils (%) (Auto) 0.5 % Neutrophils # (Auto) 9.9 TH/MM3 Lymphocytes # (Auto) 2.1 TH/MM3 Monocytes # (Auto) 0.4 TH/MM3 Eosinophils # (Auto) 0.2 TH/MM3 Basophils # (Auto) 0.1 TH/MM3 CBC Comment DIFF FINAL Differential Comment Prothrombin Time 10.6 SEC Prothromb Time International Ratio 1.0 RATIO Activated Partial Thromboplast Time 28.9 SEC Blood Urea Nitrogen 16 MG/DL Creatinine 1.24 MG/DL Random Glucose 113 MG/DL Total Protein 8.3 GM/DL Albumin 3.6 GM/DL Calcium Level 9.1 MG/DL Alkaline Phosphatase 87 U/L Aspartate Amino Transf (AST/SGOT) 31 U/L Alanine Aminotransferase (ALT/SGPT) 15 U/L Total Bilirubin 0.3 MG/DL Sodium Level 139 MEQ/L Potassium Level 4.3 MEQ/L Chloride Level 104 MEQ/L Carbon Dioxide Level 25.8 MEQ/L Anion Gap 9 MEQ/L Estimat Glomerular Filtration Rate 52 ML/MIN Lipase 198 U/L Urine Color LIGHT-YELLOW Urine Turbidity HAZY Urine pH 6.5 Urine Specific [place] 1.020 Urine Protein 30 mg/dL Urine Glucose (UA) NEG mg/dL Urine Ketones NEG mg/dL Urine Occult Blood MOD Urine Nitrite NEG Urine Bilirubin NEG Urine Urobilinogen LESS THAN 2.0 MG/DL Urine Leukocyte Esterase LARGE Urine RBC 36 /hpf Urine WBC /hpf Urine WBC Clumps MANY Urine Squamous Epithelial Cells <1 /hpf Urine Bacteria RARE /hpf Microscopic Urinalysis Comment CULTURE INDICATED Lactic Acid Level 0.7 mmol/L MDM Medical Decision Making Medical Screen Exam Complete: Yes Emergency Medical Condition: Yes Differential Diagnosis Pyelonephritis vs. nephrolithiasis vs. colitis vs. pancreatitis vs. appendicitis vs. malingering Narrative Course 26yo F with c/o abdominal pain and back pain that started an hour ago. Labs reviewed, mild leukocytosis at 12.6. Creatinine elevated at 1.24 compared to baseline of 0.60. CTa/p showed no acute finding within abdomen or pelvis. Severely atrophic right kidney with hypertrophied left kidney. Informed pt and she knows about this. There is an indeterminate low density lesion at upper pole of the right kidney measuring 14mm. At some point this should be further characterized with ultrasound or renal protocol MRI with and without contrast. Do not feel that this is an emergency that needs to be obtain in the emergency department. Pt given zofran and morphine which helped with pain but still feels a little nauseous and pain comes and goes. Will give a dose of reglan. NS IVF x2 given but pt is persistently tachycardic at 110-115bpm. It has decreased from 126bpm. Pt was IVDA and said last use IV drugs 1.5 months ago. UA showed large leukocyte. Many WBC clumps. Added blood cultures and lactic acid. Will give a third liter of NS IVF. Pt given ceftriaxone 1gm IV. Discussed with Dr. Santos and accepted to her service. Diagnosis Primary Impression: Pyelonephritis Additional Impression: Tachycardia Admitting Information Admitting Physician Requests: Leah Cox DO Jan 26, 2017 03:38
[2017-01-26] MEDS ORDERED: SODIUM CHLORIDE 0.9% FLUSH 10 ML FLUSH IV FLUSH PRN ×2 (03:45→06:45)
[2017-01-26] MEDS ORDERED: MORPHINE SULFATE 4 MG/ML INJ IV PUSH ONE (03:45)
[2017-01-26] MEDS ORDERED: SODIUM CHLOR 0.9% 1000 ML INJ 1,000 ML IV ONE ×3 (03:45→06:00)
[2017-01-26] MEDS ORDERED: ONDANSETRON HCL 4 MG/2 ML VIAL IV PUSH ONE (03:45)
[2017-01-26 04:06] LABS: AUTOMATED NEUTROPHIL # 9.9 TH/MM3 (1.8-7.7); BASOPHIL # 0.1 TH/MM3 (0-0.2); BASOPHIL % 0.5 % (0.0-2.0); EOSINOPHIL # 0.2 TH/MM3 (0-0.4); EOSINOPHIL % 1.2 % (0.0-4.0); HEMO FLAGS DIFF FINAL; LYMPHOCYTE # 2.1 TH/MM3 (1.0-4.8); MEAN CELL VOLUME 90.7 FL (80.0-100.0); MEAN CORPUSCULAR HEMOGLOBIN 29.8 PG (27.0-34.0); MEAN CORPUSCULAR HGB CONC 32.9 % (32.0-36.0); NEUT % 78.3 % (16.0-70.0); PLATELET COUNT 227 TH/MM3 (150-450); RED BLOOD COUNT 4.41 MIL/MM3 (4.00-5.30); RED CELL DISTRIBUTION WIDTH 13.4 % (11.6-17.2); WHITE BLOOD COUNT 12.6 TH/MM3 (4.0-11.0)
[2017-01-26 04:14] LABS: APTT (PATIENT) 28.9 SEC (24.3-30.1); PROTHROMBIN TIME - PATIENT 10.6 SEC (9.8-11.6)
--- NOTE | 2017-01-26 04:22 | RADRPT ---
EXAM DATE/TIME: 01/26/2017 04:03 [facility] COMPARISON: No previous studies available for comparison. INDICATIONS : Abdominal and lower back pain. IV CONTRAST: 95 cc Omnipaque 350 (iohexol) IV ORAL CONTRAST: No oral contrast ingested. RADIATION DOSE: 5.36 CTDIvol (mGy) MEDICAL HISTORY : Hepatitis B. SURGICAL HISTORY : None. ENCOUNTER: Initial ACUITY: 1 day PAIN SCALE: 8/10 LOCATION: Bilateral abdomen TECHNIQUE: Volumetric scanning of the abdomen and pelvis was performed. Using automated exposure control and ad justment of the mA and/or kV according to patient size, radiation dose was kept as low as reasonably achievable to obtain optimal diagnostic quality images. DICOM format image data is available electro nically for review and comparison. FINDINGS: LOWER LUNGS: The visualized lower lungs are clear. LIVER: Homogeneous density without lesion. There is no dilation of the biliary tree. No calcified gallston es. SPLEEN: Normal size without lesion. PANCREAS: Within normal limits. KIDNEYS: Right kidney is severely atrophic and left kidney is hypertrophied, suggesting the right kidney is ch ronically atrophic. There is a low-density lesion at the upper pole the right kidney measuring 14 mm. Hounsfield measurements are 35. There is no hydronephrosis or stone. ADRENAL GLANDS: Within normal limits. VASCULAR: There is no aortic aneurysm. BOWEL/MESENTERY: The stomach, small bowel, and colon demonstrate no acute abnormality. There is no free intraperitone al air or fluid. Appendix is normal. ABDOMINAL WALL: Within normal limits. RETROPERITONEUM: There is no lymphadenopathy. BLADDER: No wall thickening or mass. REPRODUCTIVE: Within normal limits. There is a rim-enhancing corpus luteal cyst in the left ovary. INGUINAL: There is no lymphadenopathy or hernia. MUSCULOSKELETAL: No acute abnormality. CONCLUSION: 1. No acute finding is identified within the abdomen or pelvis. 2. Severely atrophic right kidney with hypertrophied left kidney. There is an indeterminate low densi ty lesion at the upper pole the right kidney measuring 14 mm. Features do not indicate a simple cyst on this examination. At some point this should ideally be further characterized with ultrasound or re nal protocol MRI with and without intravenous contrast. Chalo Agosto MD on January 26, 2017 at 4:15 Board Certified Radiologist. This report was verified electronically.
[2017-01-26 04:24] LABS: ALKALINE PHOSPHATASE 87 U/L (45-117); TOTAL BILIRUBIN ADULT 0.3 MG/DL (0.2-1.0)
[2017-01-26 04:30] LABS: ALT (GPT) 15 U/L (10-53); ANION GAP 9 MEQ/L (5-15); AST (GOT) 31 U/L (15-37); BICARBONATE 25.8 MEQ/L (21.0-32.0); BLOOD UREA NITROGEN 16 MG/DL (7-18); CHLORIDE 104 MEQ/L (98-107); GLOMERULAR FILTRATION RATE 52 ML/MIN (>89); POTASSIUM 4.3 MEQ/L (3.5-5.1); SODIUM (NA) 139 MEQ/L (136-145)
[2017-01-26 05:58] LABS: BACTERIA, URINE RARE /hpf; BLOOD, URINE MOD (NEG); COMMENT (UR) CULTURE INDICATED; CULTURE IF INDICATED CULTURE INDICATED; GLUCOSE,URINE NEG (NEG); KETONE, URINE NEG (NEG); NITRITE,URINE NEG (NEG); PH, URINE 6.5 (5.0-8.5); SQUAMOUS EPITHELIAL CELL URINE <1 /hpf (0-5); URINE COLOR LIGHT-YELLOW (YELLW/STRAW)
[2017-01-26] MEDS ORDERED: cefTRIAXone INJ 1,000 MG in SODIUM CHLORIDE 0.9% INJ 100 ML IV ONE (06:00)
[2017-01-26] MEDS ORDERED: METOCLOPRAMIDE INJ 10 MG in SODIUM CHLORIDE 0.9% INJ 50 ML IV ONE (06:15)
[2017-01-26] MEDS ORDERED: MORPHINE SULFATE 4 MG/ML INJ IV PUSH PRN (06:45)
[2017-01-26] MEDS ORDERED: CIPROFLOXACIN 400 MG PREMIX 200 ML IV SCH (06:45)
[2017-01-26] MEDS ORDERED: NALOXONE HCL 0.4 MG/ML AMP IV PRN (06:45)
[2017-01-26] MEDS ORDERED: ONDANSETRON HCL 4 MG/2 ML VIAL IVP PRN (06:45)
[2017-01-26] MEDS: SODIUM CHLOR 0.9% 1000 ML INJ 1,000 ML IV SCH ×2 (06:57→18:12)
[2017-01-26] MEDS: CIPROFLOXACIN 400 MG PREMIX 200 ML IV SCH ×2 (08:23→18:12)
[2017-01-26] MEDS: SODIUM CHLORIDE 0.9% FLUSH 10 ML FLUSH IV FLUSH SCH ×2 (09:44→20:40)
--- NOTE | 2017-01-26 12:25 | HHI.HP ---
HPI Service [facility] Primary Care Physician Unknown Admission Diagnosis Pyelonephritis, dehydration Diagnoses: (1) Pyelonephritis (2) Sepsis Chief Complaint: Urinary frequency with bilateral flank pain Travel History International Travel<30 Days: No Contact w/Intl Traveler <30 Da: No Traveled to Known Affected Are: No Sepsis Criteria SIRS Criteria (2 or more): Heart rate over 90, WBC > 93733, < 4000 or > 10% bands Sepsis Criteria (SIRS+source): Infect source susp/known Criteria Outcome: Meets sepsis criteria History of Present Illness 26-year-old female for recent history of right knee cellulitis came to the ED for evaluation of worsening symptoms of urinary frequency with dysuria along with an acute onset of bilateral flank pain rated 7/10 in intensity as well as subjective fevers. Patient also noted a foul odor to her urine. WBC on admission was 12.6 and creatinine of 1.24 with abnormal UA. Initially patient had symptoms of nausea and vomiting which resolved. Denies any GI bleeding. Review of Systems Except as stated in HPI: all other systems reviewed are Neg Past Family Social History Past Medical History Bipolar disorder Recent history of right knee cellulitis Past Surgical History [place] tooth extracted Reported Medications Not currently on any medication Allergies: Coded Allergies: mupirocin (Unverified Allergy, Severe, 01/26/17) sulfamethoxazole (Unverified Allergy, Severe, HIVES, 01/26/17) trimethoprim (Unverified Allergy, Severe, HIVES, 01/26/17) *MDRO Multi-Drug Resistant Organism (Verified Allergy, Unknown, 01/26/17) hx mrsa bee venom protein (honey bee) (Unverified Adverse Reaction, Severe, Anaphylaxis, 01/26/17) Family History Denies any family history of heart disease, hypertension or diabetes type 2 Social History Alcohol Use: Yes ('heavely' ) Tobacco Use: Yes (1 PPD) Substance Use: Yes (IVDU) Physical Exam Vital Signs Vital Signs Date Time Temp Pulse Resp B/P (MAP) Pulse Ox O2 Delivery O2 Flow Rate FiO2 01/26/17 10:30 103 20 116/73 (87) 98 Room Air 01/26/17 07:30 99 20 120/80 (93) 99 Room Air 01/26/17 06:11 98.1 101 20 121/81 (94) 98 Room Air 01/26/17 03:58 100 Room Air 01/26/17 03:03 97.5 114 20 124/60 (81) 100 Room Air 01/26/17 02:45 97.7 126 20 110/70 (83) 100 Room Air Physical Exam GENERAL: This is a well-nourished, well-developed patient, in no apparent distress. SKIN: No rashes, ecchymoses or lesions. Cool and dry. HEAD: Atraumatic. Normocephalic. No temporal or scalp tenderness. EYES: Pupils equal round and reactive. Extraocular motions intact. No scleral icterus. No injection or drainage. ENT: Nose without bleeding, purulent drainage or septal hematoma. Throat without erythema, tonsillar hypertrophy or exudate. Uvula midline. Airway patent. NECK: Trachea midline. No JVD or lymphadenopathy. Supple, nontender, no meningeal signs. CARDIOVASCULAR: Regular rate and rhythm without murmurs, gallops, or rubs. RESPIRATORY: Clear to auscultation. Breath sounds equal bilaterally. No wheezes , rales, or rhonchi. GASTROINTESTINAL: Abdomen soft, non-tender, nondistended. No hepato-splenomegaly , or palpable masses. No guarding. MUSCULOSKELETAL: Extremities without clubbing, cyanosis, or edema. No joint tenderness, effusion, or edema noted. No calf tenderness. Negative Homans sign bilaterally. Positive for bilateral flank pain with tenderness on palpation NEUROLOGICAL: Awake and alert. Cranial nerves II through XII intact. Motor and sensory grossly within normal limits. Five out of 5 muscle strength in all muscle groups. Normal speech. Laboratory Laboratory Tests Test 01/26/17 03:15 01/26/17 05:35 01/26/17 06:06 White Blood Count 12.6 Red Blood Count 4.41 Hemoglobin 13.2 Hematocrit 40.0 Mean Corpuscular Volume 90.7 Mean Corpuscular Hemoglobin 29.8 Mean Corpuscular Hemoglobin Concent 32.9 Red Cell Distribution Width 13.4 Platelet Count 227 Mean Platelet Volume 7.6 Neutrophils (%) (Auto) 78.3 Lymphocytes (%) (Auto) 17.0 Monocytes (%) (Auto) 3.0 Eosinophils (%) (Auto) 1.2 Basophils (%) (Auto) 0.5 Neutrophils # (Auto) 9.9 Lymphocytes # (Auto) 2.1 Monocytes # (Auto) 0.4 Eosinophils # (Auto) 0.2 Basophils # (Auto) 0.1 CBC Comment DIFF FINAL Differential Comment Prothrombin Time 10.6 Prothromb Time International Ratio 1.0 Activated Partial Thromboplast Time 28.9 Blood Urea Nitrogen 16 Creatinine 1.24 Random Glucose 113 Total Protein 8.3 Albumin 3.6 Calcium Level 9.1 Alkaline Phosphatase 87 Aspartate Amino Transf (AST/SGOT) 31 Alanine Aminotransferase (ALT/SGPT) 15 Total Bilirubin 0.3 Sodium Level 139 Potassium Level 4.3 Chloride Level 104 Carbon Dioxide Level 25.8 Anion Gap 9 Estimat Glomerular Filtration Rate 52 Lipase 198 Urine Color LIGHT-YELLOW Urine Turbidity HAZY Urine pH 6.5 Urine Specific [place] 1.020 Urine Protein 30 Urine Glucose (UA) NEG Urine Ketones NEG Urine Occult Blood MOD Urine Nitrite NEG Urine Bilirubin NEG Urine Urobilinogen LESS THAN 2.0 Urine Leukocyte Esterase LARGE Urine RBC 36 Urine WBC Urine WBC Clumps MANY Urine Squamous Epithelial Cells <1 Urine Bacteria RARE Microscopic Urinalysis Comment CULTURE INDICATED Lactic Acid Level 0.7 Date/Time Source Procedure Growth Status 01/26/17 06:10 Blood Peripheral Aerobic Blood Culture Pending Received 01/26/17 06:10 Blood Peripheral Anaerobic Blood Culture Pending Received 01/26/17 05:35 Urine Clean Catch Urine Culture Pending Received Result Diagram: 01/26/175 01/26/17314 Imaging Last Impressions Abdomen/Pelvis CT 01/26/17 0338 Signed Impressions: Service Date/Time: Thursday, January 26, 2017 04:03 - CONCLUSION: 1. No acute finding is identified within the abdomen or pelvis. 2. Severely atrophic right kidney with hypertrophied left kidney. There is an indeterminate low density lesion at the upper pole the right kidney measuring 14 mm. Features do not indicate a simple cyst on this examination. At some point this should ideally be further characterized with ultrasound or renal protocol MRI with and without intravenous contrast. Chalo Agosto MD Septic Shock Reassessment Heart: Regular rate and rhythm Lungs: Clear Skin: Warm Peripheral Pulses: Bounding Right Radial Bounding Left Radial Bounding Right Popliteal Bounding Left Popliteal Bounding Right Dorsalis Pedis Bounding Left Dorsalis Pedis Bounding Right Posterior Tibial Bounding Left Posterior Tibial Capillary Refill: >2 seconds Caprini VTE Risk Assessment Caprini VTE Risk Assessment: No/Low Risk (score <= 1) Caprini Risk Assessment Model Point Value = 1 Point Value = 2 Point Value = 3 Point Value = 5 Age 41-60 Minor surgery BMI > 25 kg/m2 Swollen legs Varicose veins or History of unexplained or recurrent spontaneous Oral contraceptives or hormone replacement Sepsis (< 1 month) Serious lung disease, including pneumonia (< 1 month) Abnormal pulmonary function Acute myocardial infarction Congestive heart failure (< 1 month) History of inflammatory bowel disease Medical patient at bed rest Age 61-74 Arthroscopic surgery Major open surgery (> 45 min) Laparoscopic surgery (> 45 min) Malignancy Confined to bed (> 72 hours) Immobilizing plaster cast Central venous access Age >= 75 History of VTE Family history of VTE Factor V Leiden Prothrombin [id number] Lupus anticoagulant Anticardiolipin antibodies Elevated serum homocysteine Heparin-induced thrombocytopenia Other congenital or acquired thrombophilia Stroke (< 1 month) Elective arthroplasty Hip, pelvis, or leg fracture Acute spinal cord injury (< 1 month) Prophylaxis Regimen Total Risk Factor Score Risk Level Prophylaxis Regimen 0-1 Low Early ambulation 2 Moderate Order ONE of the following: *Sequential Compression Device (SCD) *Heparin 5000 units SQ BID 3-4 Higher Order ONE of the following medications: *Heparin 5000 units SQ TID *Enoxaparin/Lovenox 40 mg SQ daily (WT < 150 kg, CrCl > 30 mL/min) *Enoxaparin/Lovenox 30 mg SQ daily (WT < 150 kg, CrCl > 10-29 mL/min) *Enoxaparin/Lovenox 30 mg SQ BID (WT < 150 kg, CrCl > 30 mL/min) AND/OR *Sequential Compression Device (SCD) 5 or more Highest Order ONE of the following medications: *Heparin 5000 units SQ TID (Preferred with Epidurals) *Enoxaparin/Lovenox 40 mg SQ daily (WT < 150 kg, CrCl > 30 mL/min) *Enoxaparin/Lovenox 30 mg SQ daily (WT < 150 kg, CrCl > 10-29 mL/min) *Enoxaparin/Lovenox 30 mg SQ BID (WT < 150 kg, CrCl > 30 mL/min) AND *Sequential Compression Device (SCD) Assessment and Plan Problem List: (1) Sepsis ICD Code: A41.9 - Sepsis, unspecified organism Status: Resolved (2) Pyelonephritis ICD Code: N12 - Tubulo-interstitial nephritis, not specified as acute or chronic Status: Acute (3) Alcohol abuse ICD Code: F10.10 - Alcohol abuse, uncomplicated Status: Acute Assessment and Plan 26-year-old female with Sepsis: Heart rate over 90, WBC > 88538, < 4000 or > 10% bands; lactic acid 0.7 , Infect source susp/known (pyelonephritis), status post Rocephin IV 1. Currently on IV Cipro every 12 hours pending culture report Pyelonephritis CT abdomen/pelvics noted and review by me without any acute finding Currently on Cipro IV every 12 hours pending urine culture report Acute renal failure Prerenal due to dehydration Continue with gentle IV fluid hydration and monitor BUN and creatinine Alcohol abuse Alcohol cessation counseling provided Start rally pack, CIWA protocol Tobacco abuse Tobacco cessation counseling provided Start nicotine patch DVT prophylaxis: Bilateral SCDs Code Status Full code Discussed Condition With Patient Physician Certification 2 Midnight Certification Type: Admission for Inpatient Services Order for Inpatient Services The services are ordered in accordance with Medicare regulations or non- Medicare payer requirements, as applicable. In the case of services not specified as inpatient-only, they are appropriately provided as inpatient services in accordance with the 2-midnight benchmark. Estimated LOS (days): 2 days is the estimated time the patient will need to remain in the hospital, assuming treatment plan goals are met and no additional complications. Post-Hospital Plan: Not yet determined Kp Lara MD Jan 26, 2017 12:25
[2017-01-26] MEDS ORDERED: FLUMAZENIL 0.5 MG/5 ML VIAL IV PUSH PRN (12:30)
[2017-01-26] MEDS ORDERED: LORazepam 2 MG TAB PO PRN (12:30)
[2017-01-26] MEDS ORDERED: LORazepam 1 MG TAB PO PRN (12:30)
[2017-01-26] MEDS ORDERED: LORazepam 2 MG/ML VIAL IV PUSH PRN ×4 (12:30)
[2017-01-26] MEDS: NICOTINE 14 MG/24 HR PATCH T-DERMAL SCH (13:09)
[2017-01-26] MEDS: MORPHINE SULFATE 4 MG/ML INJ IV PUSH PRN ×2 (13:09→20:40)
[2017-01-26] MEDS ORDERED: REMOVE OLD PATCH T-DERMAL SCH (21:00)
[2017-01-26] MEDS ORDERED: HYDROmorphone HCL PF 1 MG/ML VIAL IV PUSH ONE (22:00)
[2017-01-27 02:36] VITALS: BP 126/85; PULSE 90; RESP 18; TEMP 98; O2SAT 99
[2017-01-27] MEDS: MORPHINE SULFATE 4 MG/ML INJ IV PUSH PRN ×2 (02:43→08:52)
[2017-01-27] MEDS: CIPROFLOXACIN 400 MG PREMIX 200 ML IV SCH ×2 (06:01→18:14)
[2017-01-27] MEDS: NICOTINE 14 MG/24 HR PATCH T-DERMAL SCH (08:52)
[2017-01-27] MEDS: SODIUM CHLORIDE 0.9% FLUSH 10 ML FLUSH IV FLUSH SCH (08:52)
[2017-01-27] MEDS: SODIUM CHLOR 0.9% 1000 ML INJ 1,000 ML IV SCH (08:53)
[2017-01-27] MEDS ORDERED: THIAMINE HCL 100 MG TAB PO SCH (09:00)
[2017-01-27 09:01] VITALS: BP 128/78; PULSE 86; RESP 18; TEMP 98.6; O2SAT 100
[2017-01-27 09:49] LABS: AUTOMATED NEUTROPHIL # 2.9 TH/MM3 (1.8-7.7); BASOPHIL % 0.6 % (0.0-2.0); EOSINOPHIL # 0.2 TH/MM3 (0-0.4); EOSINOPHIL % 3.5 % (0.0-4.0); HEMATOCRIT 30.8 % (35.0-46.0); HEMO FLAGS DIFF FINAL; LYMPH % 43.4 % (9.0-44.0); LYMPHOCYTE # 2.6 TH/MM3 (1.0-4.8); MEAN CELL VOLUME 92.3 FL (80.0-100.0); MEAN CORPUSCULAR HEMOGLOBIN 31.1 PG (27.0-34.0); MEAN CORPUSCULAR HGB CONC 33.7 % (32.0-36.0); MONO % 5.1 % (0.0-8.0); NEUT % 47.4 % (16.0-70.0); PLATELET COUNT 163 TH/MM3 (150-450); RED BLOOD COUNT 3.34 MIL/MM3 (4.00-5.30); RED CELL DISTRIBUTION WIDTH 13.2 % (11.6-17.2)
[2017-01-27 10:22] LABS: ALKALINE PHOSPHATASE 76 U/L (45-117); ALT (GPT) 22 U/L (10-53); ANION GAP 12 MEQ/L (5-15); AST (GOT) 25 U/L (15-37); BICARBONATE 21.4 MEQ/L (21.0-32.0); BLOOD UREA NITROGEN 8 MG/DL (7-18); CHLORIDE 106 MEQ/L (98-107); GLOMERULAR FILTRATION RATE 81 ML/MIN (>89); POTASSIUM 3.1 MEQ/L (3.5-5.1); SODIUM (NA) 139 MEQ/L (136-145); TOTAL BILIRUBIN ADULT 0.2 MG/DL (0.2-1.0)
[2017-01-27 11:48] VITALS: BP 127/82; PULSE 97; RESP 16; TEMP 98.9; O2SAT 98
--- NOTE | 2017-01-27 12:33 | HHI.PR ---
Subjective Remarks Follow-up sepsis/pyelonephritis 01/27/17-patient seen and examined, currently afebrile and reports improvement of bilateral flank pain Objective Vitals Vital Signs Date Time Temp Pulse Resp B/P (MAP) Pulse Ox O2 Delivery O2 Flow Rate FiO2 01/27/17 11:48 98.9 97 16 127/82 (97) 98 01/27/17 09:01 98.6 86 18 128/78 (95) 100 01/27/17 02:50 18 01/27/17 02:36 98.0 90 18 126/85 (99) 99 01/26/17 23:36 98.3 89 18 119/85 (96) 100 01/26/17 22:40 18 01/26/17 20:01 98.1 89 18 128/85 (99) 100 01/26/17 17:08 98.1 92 18 106/68 (81) 01/26/17 16:08 90 01/26/17 13:00 98.0 90 20 135/69 (91) 100 01/26/17 12:34 I/O 01/26/17 01/26/17 01/26/17 01/27/17 01/27/17 01/27/17 07:00 15:00 23:00 07:00 15:00 23:00 Intake Total 2584 ml 1300 ml 1150 ml 1150 ml Balance 2584 ml 1300 ml 1150 ml 1150 ml Intake Oral 480 ml IV Total 2104 ml 1300 ml 1150 ml 1150 ml # Voids 1 Result Diagram: 01/27/17 0637 01/27/17 0637 Imaging Last Impressions Abdomen/Pelvis CT 01/26/17 0338 Signed Impressions: Service Date/Time: Thursday, January 26, 2017 04:03 - CONCLUSION: 1. No acute finding is identified within the abdomen or pelvis. 2. Severely atrophic right kidney with hypertrophied left kidney. There is an indeterminate low density lesion at the upper pole the right kidney measuring 14 mm. Features do not indicate a simple cyst on this examination. At some point this should ideally be further characterized with ultrasound or renal protocol MRI with and without intravenous contrast. Chalo Agosto MD Objective Remarks GENERAL: NAD SKIN: Warm and dry. HEAD: Normocephalic. EYES: No scleral icterus. No injection or drainage. NECK: Supple, trachea midline. No JVD or lymphadenopathy. CARDIOVASCULAR: Regular rate and rhythm without murmurs, gallops, or rubs. RESPIRATORY: Breath sounds equal bilaterally. No accessory muscle use. GASTROINTESTINAL: Abdomen soft, non-tender, nondistended. MUSCULOSKELETAL: No cyanosis, or edema. BACK: mildly tender without obvious deformity. No CVA tenderness. A/P Problem List: (1) Sepsis ICD Code: A41.9 - Sepsis, unspecified organism Status: Resolved (2) Pyelonephritis ICD Code: N12 - Tubulo-interstitial nephritis, not specified as acute or chronic Status: Acute (3) Alcohol abuse ICD Code: F10.10 - Alcohol abuse, uncomplicated Status: Acute Assessment and Plan 26-year-old female with Sepsis: Infect source susp/known (pyelonephritis), status post Rocephin IV 1. Currently on IV Cipro every 12 hours pending culture report Pyelonephritis CT abdomen/pelvics without any acute finding Currently on Cipro IV every 12 hours pending urine culture report Culture negative to date Acute renal failure-Resolved Prerenal due to dehydration Alcohol abuse Alcohol cessation counseling provided Continue rally pack, CIWA protocol Tobacco abuse Tobacco cessation counseling provided Continue nicotine patch Hypokalemia Give potassium 60meQ x 1 now DVT prophylaxis: Bilateral SCDs Discharge Planning Discharge 01/28/17 Kp Lara MD Jan 27, 2017 12:33
[2017-01-27] MEDS ORDERED: POTASSIUM CHLORIDE 10 MEQ CONTROLLED RELEASE TAB PO ONE (13:00)
[2017-01-27 16:15] VITALS: BP 117/74; PULSE 99; RESP 14; TEMP 98.7; O2SAT 100
--- NOTE | 2017-01-28 13:23 | HHI.PR ---
Addendum to Inpatient Note Addendum Reason: Additional Documentation Additional Information Patient signed AMA last night, however prior to leaving the hospital she was treated for Sepsis: Treated with IV Cipro every 12 hours pending culture report Pyelonephritis CT abdomen/pelvics without any acute finding Treated with Cipro IV every 12 hours pending urine culture report Culture negative to date Acute renal failure-Resolved Prerenal due to dehydration Alcohol abuse Alcohol cessation counseling provided Treated with rally pack, CIWA protocol Tobacco abuse Tobacco cessation counseling provided Treated with nicotine patch Hypokalemia She was given potassium 60meQ x 1 now DVT prophylaxis: Bilateral SCDs Kp Lara MD Jan 28, 2017 13:23
--- NOTE | 2017-01-28 13:23 | PD.AMA ---
Against Medical Advice Note AMA Statement Patient Alyssa Alcantara has decided to leave the hospital against medical advice. This patient has the capacity to refuse care and understands the risks of leaving, including permanent disability and/or , and has had an opportunity to ask questions about her condition. The patient has been informed that she may return for care at any time, and follow up has been arranged/ advised. Kp Lara MD Jan 28, 2017 13:23
== END 2017-01-27 20:15 | disposition left against medical advice (07) | DRG 872 ==
LOC: NEPE 02:43 → NEDA 06:27 → NEDH 10:51 → OBSVTOIN 12:17 → NEPGCP 13:00
PROVIDERS: ADMIT Hospitalist; ATTEND Hospitalist
DX: A41.9 Sepsis, unspecified organism (principal); N17.9 Acute kidney failure, unspecified; N12 Tubulo-interstitial nephritis, not specified as acute or chronic; E86.0 Dehydration; F31.9 Bipolar disorder, unspecified; F17.210 Nicotine dependence, cigarettes, uncomplicated; Z86.14 Personal history of Methicillin resistant Staphylococcus aureus infection; J45.909 Unspecified asthma, uncomplicated; F90.9 Attention-deficit hyperactivity disorder, unspecified type; F10.10 Alcohol abuse, uncomplicated; E87.6 Hypokalemia
CPT/HCPCS: 74177; 80053; 81001; 83605; 83690; 84703; 85025; 85610; 85730; 86403; 87040; 87077; 87086; 87186; 87205; 96361; 96374; 96375; J0696; J0744; J1170; J2270; J2405; J2765; J7030; Q9967

== ENCOUNTER 2018-04-25 00:32 | Observation (INO) ==
[2018-04-25] MEDS ORDERED: Penicillin G Potassium Inj 5,000,000 UNIT in Sodium Chloride 0.9% Inj 100 ML IV.SIG ONE (01:09)
[2018-04-25] MEDS ORDERED: Zolpidem Tartrate 5 MG Tablet PO PRN (01:09)
--- NOTE | 2018-04-25 01:20 | P.HPOB ---
History of Present Illness Primary Care Physician: No care Chief Complaint: Severe abdominal pain History of Present Illness: 27-year-old at 17 weeks no care-presents complaining of severe abdominal pain the pain starts from the suprapubic area and radiates to the right side of her back. She reports no care use of methamphetamines 2 days ago hepatitis C positive HIV negative treated for frequent pyelonephritis previously. Weeks Gestation:: 17 Para: 3 : 7 Review of Systems All other systems reviewed negative except as stated in HPI PMFSH - History History Provided By: Patient - Medical History Medical History: Medical History (Last Reviewed 03/13/18 @ 17:12 by CHANNING Shah) Anemia Asthma Chronic kidney infection - Tobacco History Smoking Status: Heavy tobacco smoker Tobacco Type: Cigarettes - Alcohol History How Often Do You Have a Drink Containing Alcohol: Never - Substance Use History Substance History: No History of Abuse, Past History Medications and Allergies Active Medications: Active Medications Acetaminophen (Tylenol) 650 mg PO Q4H PRN PRN Reason: PAIN SCALE 1 TO 5 Lactated Ringer's (Lr 1000 Ml Inj) 1,000 mls @ 125 mls/hr IV.CONT .Q8H [facility] Lactated Ringer's (Lr 1000 Ml Inj) 500 mls @ 500 mls/hr IV.SIG ONCE ONE Stop: 04/25/18 02:29 Penicillin G Potassium 5,000, (000 unit/ Sodium Chloride) 100 mls @ 200 mls/hr IV.SIG ONCE ONE Stop: 04/25/18 01:38 Ondansetron HCl (Zofran Inj) 4 mg IV.PUSH Q6H PRN PRN Reason: NAUSEA OR VOMITING Vit/Calcium/Iron/Folic Ac (Stuartnatal Plus 3) 1 tab PO DAILY [facility] Sodium Chloride (Ns Flush) 2 ml IV.FLUSH BID [facility] Sodium Chloride (Ns Flush) 2 ml IV.FLUSH PRN PRN PRN Reason: FLUSH AFTER USING IV ACCESS Sodium Chloride (Ns Flush) 2 ml IV.FLUSH BID [facility] Sodium Chloride (Ns Flush) 2 ml IV.FLUSH PRN PRN PRN Reason: FLUSH AFTER USING IV ACCESS Zolpidem Tartrate (Ambien) 5 mg PO HS PRN PRN Reason: SLEEP Allergies Allergy/AdvReac Type Severity Reaction Status Date / Time mupirocin Allergy Severe Abdominal Unverified 02/12/18 13:22 Pain sulfamethoxazole Allergy Severe HIVES Unverified 02/12/18 13:22 trimethoprim Allergy Severe HIVES Unverified 02/12/18 13:22 bee venom protein (honey bee) AdvReac Severe Anaphylaxis Verified 03/13/18 16:53 *MDRO Multi-Drug Resistant Allergy Unknown Abdominal Uncoded 02/12/18 13:22 Organism Pain Exam Vital signs: Vital Signs 04/25/18 00:53 04/25/18 00:55 Temperature 98.0 F Pulse Rate 112 H Respiratory Rate 20 Blood Pressure 133/84 - Constitutional severe distress - Routine HEENT Exam Head: Present: normocephalic ENT: Present: mucous membranes dry. Absent: dentition normal - Routine Neck Exam Present: supple - Routine Chest/Breast/Axilla Exam Chest wall: Absent: tenderness - Routine Respiratory Exam Absent: accessory muscle use - Routine Cardiovascular Exam Present: RRR - Routine Abdominal Exam Present: soft (Gravid/ positive heart tone /positive right flank pain positive suprapubic pain), guarding. Absent: organomegaly, mass, hernia - Routine Exam Comments: Cervix closed posterior firm - Routine Extremities Exam Absent: calf tenderness, Jennifer's sign - Routine Skin Exam Present: intact, dry, pallor - Routine Neurological Exam Present: alert, oriented X3 Results - Labs CBC & Chem 7: 04/25/18 01:20 04/25/18 01:20 Caprini VTE Risk Assessment Caprini VTE Risk Assessment: No/Low Risk (score <= 1) Caprini Risk Assessment Model: Point Value = 1 Point Value = 2 Point Value = 3 Point Value = 5 Age 41-60 Minor surgery BMI > 25 kg/m2 Swollen legs Varicose veins or History of unexplained or recurrent spontaneous Oral contraceptives or hormone replacement Sepsis (< 1 month) Serious lung disease, including pneumonia (< 1 month) Abnormal pulmonary function Acute myocardial infarction Congestive heart failure (< 1 month) History of inflammatory bowel disease Medical patient at bed rest Age 61-74 Arthroscopic surgery Major open surgery (> 45 min) Laparoscopic surgery (> 45 min) Malignancy Confined to bed (> 72 hours) Immobilizing plaster cast Central venous access Age >= 75 History of VTE Family history of VTE Factor V Leiden Prothrombin [id number] Lupus anticoagulant Anticardiolipin antibodies Elevated serum homocysteine Heparin-induced thrombocytopenia Other congenital or acquired thrombophilia Stroke (< 1 month) Elective arthroplasty Hip, pelvis, or leg fracture Acute spinal cord injury (< 1 month) Prophylaxis Regimen: Total Risk Factor Score Risk Level Prophylaxis Regimen 0-1 Low Early ambulation 2 Moderate Order ONE of the following: *Sequential Compression Device (SCD) *Heparin 5000 units SQ BID 3-4 Higher Order ONE of the following medications: *Heparin 5000 units SQ TID *Enoxaparin/Lovenox 40 mg SQ daily (WT < 150 kg, CrCl > 30 mL/min) *Enoxaparin/Lovenox 30 mg SQ daily (WT < 150 kg, CrCl > 10-29 mL/min) *Enoxaparin/Lovenox 30 mg SQ BID (WT < 150 kg, CrCl > 30 mL/min) AND/OR *Sequential Compression Device (SCD) 5 or more Highest Order ONE of the following medications: *Heparin 5000 units SQ TID (Preferred with Epidurals) *Enoxaparin/Lovenox 40 mg SQ daily (WT < 150 kg, CrCl > 30 mL/min) *Enoxaparin/Lovenox 30 mg SQ daily (WT < 150 kg, CrCl > 10-29 mL/min) *Enoxaparin/Lovenox 30 mg SQ BID (WT < 150 kg, CrCl > 30 mL/min) AND *Sequential Compression Device (SCD) Assessment and Plan - Diagnosis (1) Pyelonephritis affecting in second trimester Code(s): O23.02 - Infections of kidney in , second trimester Status: Acute (2) No care in current in second trimester Code(s): O09.32 - Supervision of with insufficient care, second trimester Status: Acute (3) Abdominal pain affecting , antepartum Code(s): O26.899 - Other specified related conditions, unspecified trimester; R10.9 - Unspecified abdominal pain Status: Acute (4) Methamphetamine abuse Code(s): F15.10 - Other stimulant abuse, uncomplicated Status: Acute (5) 17 weeks gestation of Code(s): Z3A.17 - 17 weeks gestation of Status: Acute - Plan Admit/observation . Treat as pyelonephritis. Sterile urine catheter performed by -sent for culture and sensitivity. Ultrasound in the a.m.
[2018-04-25] MEDS: Acetaminophen 325 MG Tablet PO PRN ×2 (01:38→08:04)
[2018-04-25 01:40] LABS: Baso % (Auto) 0.5 % (0.0-2.0); Eos # (Auto) 0.1 th/mm3 (0.0-0.4); Eos % (Auto) 1.4 % (0.0-4.0); Hemoglobin 10.9 gm/dL (11.6-15.3); Lymph # (Auto) 2.9 th/mm3 (1.0-4.8); Mean Corpuscular Hemoglobin 31.9 pg (27.0-34.0); Mean Corpuscular Volume 93.7 fL (80.0-100.0); Mean Platelet Volume 7.8 fL (7.0-11.0); Mono # (Auto) 0.7 th/mm3 (0.0-0.9); Mono % (Auto) 7.3 % (0.0-8.0); Neut # (Auto) 5.6 th/mm3 (1.8-7.7); Neut % (Auto) 59.8 % (16.0-70.0); Platelet Count 187 th/mm3 (150-450); Red Blood Count 3.41 mil/mm3 (4.00-5.30); Red Cell Distribution Width 13.4 % (11.6-17.2); White Blood Count 9.4 th/mm3 (4.0-11.0)
[2018-04-25 01:58] LABS: Amphetamine Screen,Urine Pos (Neg); Barbiturate Screen,Urine Neg (Neg); Cannabinoid Screen,Urine Pos (Neg); Cocaine Screen,Urine Neg (Neg)
[2018-04-25] MEDS ORDERED: SODIUM CHLOR 0.9% IV.SIG SCH (02:00)
[2018-04-25] MEDS ORDERED: PENICILLIN SODIUM IV.SIG SCH (02:00)
[2018-04-25 02:01] LABS: Opiate Screen,Urine Pos (Neg)
[2018-04-25 02:04] LABS: Anion Gap 6 meq/L (5-15); Blood Urea Nitrogen 9 mg/dL (7-18); Calcium 8.4 mg/dL (8.5-10.1); Carbon Dioxide 26.2 meq/L (21.0-32.0); Chloride 106 meq/L (98-107); Glomerular Filtration Rate Greater Than 89 mL/min (>89); Glucose,Random 132 mg/dL (74-106); Potassium 3.6 meq/L (3.5-5.1); Sodium 138 meq/L (136-145)
[2018-04-25 04:02] LABS: Hepatitis A IgM Antibody Nonreactive (Nonreactive); Hepatitits B Surface Antigen Nonreactive (Nonreactive)
[2018-04-25] MEDS ORDERED: Penicillin G Sodium Inj 2,500,000 UNITS in Sodium Chlor 0.9% Inj 100 ML IV.SIG SCH (07:00)
[2018-04-25] MEDS: Prenatal Vit/Ca/Iron/Folic Acid Tablet PO SCH (08:04)
--- NOTE | 2018-04-25 08:41 | P.OBANTE ---
Subjective Interval History: 27yr old F homeless F at 17/4, no care No acute events overnight. Patient complaining of sharp, lower abdominal pain this morning. Appears uncomfortable. Catheterized urine yesterday was not sufficient. Patient was able to urinate this morning and was able to provide sample. Spotting noticed by nurse, most likely due to being catheterized yesterday. Denies fevers, CP, SOB, N/V, and calf pain. Reports that she does 2 lines of meth/ day. States her last dose was two days ago. Antepartum ROS: Reports: movement normal Denies: Loss of fluid, Vaginal bleeding, Contractions Objective Vital Signs and I&O: Vital Signs 04/25/18 00:53 04/25/18 00:55 04/25/18 02:12 Temperature 98.0 F Pulse Rate 112 H Respiratory Rate 20 18 Blood Pressure 133/84 04/25/18 03:00 04/25/18 07:00 04/25/18 08:00 Temperature 98.6 F Pulse Rate 102 H Respiratory Rate 18 18 16 Blood Pressure 117/71 Intake & Output 04/24/18 04/25/18 04/25/18 18:59 06:59 18:59 Weight 63.503 kg Lab and Micro Results: Laboratory Results - last 24 hr 04/25/18 04/25/18 04/25/18 01:00 01:20 01:20 WBC 9.4 RBC 3.41 L Hgb 10.9 L Hct 32.0 L MCV 93.7 MCH 31.9 MCHC 34.0 RDW 13.4 Plt Count 187 MPV 7.8 Neut % (Auto) 59.8 Lymph % (Auto) 31.0 [place] % (Auto) 7.3 Eos % (Auto) 1.4 Baso % (Auto) 0.5 Neut # (Auto) 5.6 Lymph # (Auto) 2.9 [place] # (Auto) 0.7 Eos # (Auto) 0.1 Baso # (Auto) 0.0 WBC Differential . Differential Comment Auto diff final Sodium 138 Potassium 3.6 Chloride 106 Carbon Dioxide 26.2 Anion Gap 6 BUN 9 Creatinine 0.69 Estimated GFR Greater than 89 Random Glucose 132 H Calcium 8.4 L Nasal Screen MRSA (PCR) Urine Opiates Screen Pos H Ur Barbiturates Screen Neg Ur Amphetamines Screen Pos H U Benzodiazepines Scrn Neg Urine Cocaine Screen Neg U Cannabinoids Screen Pos H Hepatitis A IgM Ab Hep Bs Antigen Hep B Core IgM Ab Hep C IgG Ab HIV 1&2 Ab/P24 Ag 4thGn Rubella Immunity Screen Immune Rubella Ab, Quant 11.0 04/25/18 04/25/18 04/25/18 01:20 01:20 02:15 WBC RBC Hgb Hct MCV MCH MCHC RDW Plt Count MPV Neut % (Auto) Lymph % (Auto) [place] % (Auto) Eos % (Auto) Baso % (Auto) Neut # (Auto) Lymph # (Auto) [place] # (Auto) Eos # (Auto) Baso # (Auto) WBC Differential Differential Comment Sodium Potassium Chloride Carbon Dioxide Anion Gap BUN Creatinine Estimated GFR Random Glucose Calcium Nasal Screen MRSA (PCR) Not detected Urine Opiates Screen Ur Barbiturates Screen Ur Amphetamines Screen U Benzodiazepines Scrn Urine Cocaine Screen U Cannabinoids Screen Hepatitis A IgM Ab Nonreactive Hep Bs Antigen Nonreactive Hep B Core IgM Ab Nonreactive Hep C IgG Ab Reactive H HIV 1&2 Ab/P24 Ag 4thGn Nonreactive Rubella Immunity Screen Rubella Ab, Quant Physical Exam: GENERAL: lying in bed, appears uncomfortable, complaining of lower abdominal pain CARDIOVASCULAR: Regular rate and rhythm without murmurs, gallops, or rubs. RESPIRATORY: Breath sounds equal bilaterally. No accessory muscle use. ABDOMEN/GI: Abdomen soft, non-tender. + BS. mild tenderness to palpation of lower abdomen. no guarding or rebound. BACK: moderate tenderness of upper back to palpation EXTREMITIES: No cyanosis or edema, non-tender, without signs of DVT. Assessment and Plan - Diagnosis (1) 17 weeks gestation of Code(s): Z3A.17 - 17 weeks gestation of Status: Acute (2) Abdominal pain affecting , antepartum Code(s): O26.899 - Other specified related conditions, unspecified trimester; R10.9 - Unspecified abdominal pain Status: Acute (3) Methamphetamine abuse Code(s): F15.10 - Other stimulant abuse, uncomplicated Status: Acute (4) No care in current in second trimester Code(s): O09.32 - Supervision of with insufficient care, second trimester Status: Acute (5) Pyelonephritis affecting in second trimester Code(s): O23.02 - Infections of kidney in , second trimester Status: Acute - Plan 27yr old homeless F w/ hx of substance abuse, at 17/4 weeks presents with abdominal pain, most likely pyelonephritis 1. Pyelonephritis -Catheterized urine yesterday insufficient, new urine sent for cultures and sensitivities -continue Penicillin G 2,500,000 units q4h -LR at 25mls/hr 2. Substance abuse -UA positive for opioids, cannabinoids, and methamphetamine -reports doing 2 lines of meth every day, last use was 2 days ago per patient -patient complaining of lower abdominal pain this morning, no vaginal bleeding, could be withdrawing -Percocet PRN -Prior pregnancies were put up for adoption -Patient desires adoption for this -Case management consulted 3. No care -CM to work on getting patient insurance -Patient could be a good candidate for [facility] 4. 17 weeks of -Continue routine OB care dw Dr. Perez and
[2018-04-25 08:56] LABS: Bacteria,Urine Moderate /hpf; Bilirubin,Urine Negative (Negative); Color,Urine Yellow (Yellw/Straw); Glucose,Urine (UA) Negative (Negative); Hyaline Casts,Urine 17 /lpf (0-3); Leukocyte Esterase,Urine Large (Negative); Mucus,Urine Few /lpf (Occasional); Nitrite,Urine Positive (Negative); Specific Gravity,Urine 1.027 (1.002-1.035); Squamous Epithelial Cell,Urine 9 /hpf (0-5)
[2018-04-25 08:57] LABS: Clarity,Urine Hazy (Clear)
[2018-04-25] MEDS: ceFAZolin 2 GM Premix Inj 2 GM/50 ML PIGGYBACK IV.SIG SCH ×2 (12:25→20:05)
[2018-04-26] MEDS: ceFAZolin 2 GM Premix Inj 2 GM/50 ML PIGGYBACK IV.SIG SCH ×3 (03:48→19:41)
--- NOTE | 2018-04-26 08:02 | P.OBANTE ---
Subjective Interval History: No acute events overnight. Patient complains of mild lower abdominal pain and improved back pain. Patient states that she is currently on a liquid diet and tolerating well. Would like to start a regular diet. Patient denies chest pain , shortness of breath, nausea vomiting, and fevers. Objective Vital Signs and I&O: Vital Signs 04/25/18 09:00 04/25/18 12:25 04/25/18 16:12 Temperature 98.8 F 98.9 F Pulse Rate 85 102 H Respiratory Rate 20 16 15 Blood Pressure 124/69 119/82 04/25/18 20:13 04/25/18 22:15 04/26/18 00:10 Temperature 98.4 F 98.2 F Pulse Rate 99 H 100 H Respiratory Rate 16 15 16 Blood Pressure 114/61 108/67 04/26/18 02:04 04/26/18 03:51 Temperature 98.3 F Pulse Rate 91 H Respiratory Rate 18 18 Blood Pressure 93/51 L Intake & Output 04/25/18 04/26/18 04/26/18 18:59 06:59 18:59 Intake Total 1100 / 1100 1150 / 1150 Balance 1100 / 1100 1150 / 1150 Intake: IV 1100 / 1100 1150 / 1150 LR 1000 mL Inj 1,000 ML @ 125 1000 / 1000 1000 / 1000 mls/hr IV.CONT .Q8H [facility] Rx#: [id number] Penicillin G Sodium Inj 2,500, 100 / 100 000 UNITS In NS Inj 100 ML @ 200 mls/hr IV.SIG Q4H [facility] Rx#: [id number] Ancef 2 GM Premix Inj 2 gm In 150 / 150 50 ml @ 100 mls/hr IV.SIG Q8H [facility] Rx#:[id number] Lab and Micro Results: Laboratory Results - last 24 hr 04/25/18 04/25/18 04/25/18 01:20 08:27 08:27 Urine Color Yellow Urine Clarity Hazy H Urine pH 5.0 Ur Specific [place] 1.027 Urine Protein 30 H Urine Glucose (UA) Negative Urine Ketones Negative Urine Occult Blood Moderate H Urine Nitrate Positive H Urine Bilirubin Negative Urine Urobilinogen Less than 2 Ur Leukocyte Esterase Large H Urine RBC 8 H Urine WBC Urine WBC Clumps Few H Ur Squamous Epith Cells 9 Urine Bacteria Moderate H Hyaline Casts 17 Urine Mucus Few H Micro UA Comment Culture indicated Ur Microscopic Review Not Reportable Urine Culture Comments Culture indicated RPR Nonreactive Chlam trachomat DNA PCR Detected N.gonorrhoeae DNA (PCR) Detected A Physical Exam: GENERAL: Well-nourished, well-developed patient. CARDIOVASCULAR: Regular rate and rhythm without murmurs, gallops, or rubs. RESPIRATORY: Breath sounds equal bilaterally. No accessory muscle use. ABDOMEN/GI: Abdomen soft, non-tender. Positive bowel sounds. No rebound, no guarding BACK: no tenderness to palpation of the back EXTREMITIES: No cyanosis or edema, non-tender, without signs of DVT. Assessment and Plan - Diagnosis (1) 17 weeks gestation of Code(s): Z3A.17 - 17 weeks gestation of Status: Acute (2) Abdominal pain affecting , antepartum Code(s): O26.899 - Other specified related conditions, unspecified trimester; R10.9 - Unspecified abdominal pain Status: Acute (3) Methamphetamine abuse Code(s): F15.10 - Other stimulant abuse, uncomplicated Status: Acute (4) No care in current in second trimester Code(s): O09.32 - Supervision of with insufficient care, second trimester Status: Acute (5) Pyelonephritis affecting in second trimester Code(s): O23.02 - Infections of kidney in , second trimester Status: Acute (6) Gonorrhea Code(s): A54.9 - Gonococcal infection, unspecified Status: Acute (7) Chlamydia Code(s): A74.9 - Chlamydial infection, unspecified Status: Acute - Plan 27yr old homeless F w/ hx of substance abuse, at 17/4 weeks presents with abdominal pain, most likely due to pyelonephritis and GC/chlamydia 1. Pyelonephritis -Catheterized urine -04/25-awaiting cultures and sensitivities -LR at 25mls/hr -continue Ancef 2G q8h 2. GC/Chlamydia -positive for GC and Chlamydia -Give Rocephin 250mg IM and Zithromax 1G PO 2. Substance abuse -UA positive for opioids, cannabinoids, and methamphetamine -reports doing 2 lines of meth every day, last use was 2 days ago per patient -Percocet PRN -Prior pregnancies were put up for adoption -Patient desires adoption for this -Case management consulted 3. No care -CM to work on getting patient insurance -Patient could be a good candidate for [facility] 4. 17 weeks of -Continue routine OB care richar Parikh
[2018-04-26] MEDS: Prenatal Vit/Ca/Iron/Folic Acid Tablet PO SCH (08:25)
[2018-04-26] MEDS ORDERED: Azithromycin 250 MG Tablet PO ONE (12:30)
[2018-04-26] MEDS ORDERED: LORazepam 0.5 MG Tablet PO STA (18:01)
[2018-04-27] MEDS: ceFAZolin 2 GM Premix Inj 2 GM/50 ML PIGGYBACK IV.SIG SCH ×2 (04:18→13:34)
[2018-04-27 10:05] VITALS: RESP 18
[2018-04-27] MEDS: Prenatal Vit/Ca/Iron/Folic Acid Tablet PO SCH (10:21)
--- NOTE | 2018-04-27 10:35 | P.OBANTE ---
Subjective Interval History: No acute events overnight. Patient complaining of moderate right lower quadrant abdominal pain. Patient was informed she was positive for GC/ Chylamdia this morning. Patient became very emotional and stated that she "wanted to kill Michael." Ex-boyfriend is at bedside. Ex-boyfriend asked where he could get tested. Endorses moderate vaginal discharge. Denies fevers, chest pain, shortness of breath, nausea vomiting. Objective Vital Signs and I&O: Vital Signs 04/26/18 14:20 04/26/18 19:54 04/26/18 19:59 Temperature 98.7 F 98.2 F Pulse Rate 90 Respiratory Rate 16 18 Blood Pressure 110/71 04/27/18 01:17 04/27/18 01:18 04/27/18 04:21 Temperature 98.2 F 98.2 F Pulse Rate 93 H Respiratory Rate 16 16 Blood Pressure 107/55 L 04/27/18 04:23 04/27/18 08:30 04/27/18 08:34 Temperature 98.6 F Pulse Rate 88 103 H Respiratory Rate 18 Blood Pressure 106/62 132/95 H Intake & Output 04/26/18 04/27/18 04/27/18 18:59 06:59 18:59 Intake Total 1000 / 1000 2099 / 2100 Balance 1000 / 1000 2099 / 2100 Intake: IV 1000 / 1000 2099 / 2100 LR 1000 mL Inj 1,000 ML @ 125 1000 / 1000 2000 / 2000 mls/hr IV.CONT .Q8H [facility] Rx#: [id number] Ancef 2 GM Premix Inj 2 gm In 100 / 100 50 ml @ 100 mls/hr IV.SIG Q8H [facility] Rx#:[id number] Lab and Micro Results: Laboratory Results - last 24 hr 04/25/18 08:27 Urine Color Yellow Urine Clarity Hazy H Urine pH 5.0 Ur Specific [place] 1.027 Urine Protein 30 H Urine Glucose (UA) Negative Urine Ketones Negative Urine Occult Blood Moderate H Urine Nitrate Positive H Urine Bilirubin Negative Urine Urobilinogen Less than 2 Ur Leukocyte Esterase Large H Urine RBC 8 H Urine WBC Urine WBC Clumps Few H Ur Squamous Epith Cells 9 Urine Bacteria Moderate H Hyaline Casts 17 Urine Mucus Few H Micro UA Comment Culture indicated Urine Culture Comments Culture indicated Microbiology 04/25/18 08:27 Urine Culture - Preliminary Clean Catch Urine gram negative rods Physical Exam: GENERAL: lying in bed, emotional, crying CARDIOVASCULAR: Regular rate and rhythm without murmurs, gallops, or rubs. RESPIRATORY: Breath sounds equal bilaterally. No accessory muscle use. ABDOMEN/GI: Right mid quadrant pain on palpation, no rebound or guarding BACK: no tenderness to palpation of the back EXTREMITIES: Left elbow includes a 2-3 cm round indurated, erythematous lesion Assessment and Plan - Diagnosis (1) 17 weeks gestation of Code(s): Z3A.17 - 17 weeks gestation of Status: Acute (2) Abdominal pain affecting , antepartum Code(s): O26.899 - Other specified related conditions, unspecified trimester; R10.9 - Unspecified abdominal pain Status: Acute (3) Methamphetamine abuse Code(s): F15.10 - Other stimulant abuse, uncomplicated Status: Acute (4) No care in current in second trimester Code(s): O09.32 - Supervision of with insufficient care, second trimester Status: Acute (5) Pyelonephritis affecting in second trimester Code(s): O23.02 - Infections of kidney in , second trimester Status: Acute (6) Gonorrhea Code(s): A54.9 - Gonococcal infection, unspecified Status: Acute (7) Chlamydia Code(s): A74.9 - Chlamydial infection, unspecified Status: Acute (8) Cellulitis of left elbow Code(s): L03.114 - Cellulitis of left upper limb Status: Acute - Plan 27yr old homeless F w/ hx of substance abuse, at 17/4 weeks presents with abdominal pain, most likely due to pyelonephritis and GC/chlamydia 1. Pyelonephritis -Catheterized urine -04/25-preliminary culture positive for gram-negative rods, awaiting sensitivities -continue Ancef 2G q8h 2. GC/Chlamydia -positive for GC and Chlamydia -s/p Rocephin 250mg IM and Zithromax 1G PO 04/26 3. Persistent abdominal pain -persistent, R lower-mid quadrant abdominal pain -CT of abdomen w/o contrast to r/o appendicitis 4. Cellulitis of left elbow -2-3 cm round, erythematous, indurated lesion -cold compresses and Bacitracin cream BID 5. Substance abuse -UA positive for opioids, cannabinoids, and methamphetamine -Percocet PRN -Prior pregnancies were put up for adoption -Patient desires adoption for this -Case management consulted 6. No care -CM to work on getting patient insurance -Patient a good candidate for [facility], patient informed about [facility], patient declines 7. 17 weeks of -Continue routine OB care sdw Dr. Perez
--- NOTE | 2018-04-27 13:42 | MR ---
EXAM DATE: 04/27/2018 1:00 PM EST AGE/SEX: 27 years / Female INDICATIONS: . Right lower quadrant pain. CLINICAL DATA: This is the patient's subsequent encounter. Patient reports that signs and symptoms h ave been present for 2 days and indicates a pain score of 3/10. MEDICAL/SURGICAL HISTORY: Hepatitis C. 17 weeks Tonsillectomy. COMPARISON: [facility] – [place] A[place]EN & PELVIS W CONTRAST, 01/26/2017. . TECHNIQUE: Multiplanar, multisequence images of the abdomen was performed without contrast. FINDINGS: Problems specific findings: Axial and coronal imaging through the abdomen and pelvis is provided. The appendix is visualized on the coronal T2-weighted images and is normal in appearance. MRI source data: The appearance of the liver, spleen, pancreas and adrenal glands is within normal li mits. The right kidney is atrophic. There is hypertrophy of the left kidney. The gallbladder is visualized and is unremarkable in appearance on the T2-weighted images. The common duct is quite small in caliber measuring approximately 2-3 mm. There is no free fluid within the abdomen. Imaging through the pelvis doesn't demonstrate the patient's . The was not evaluat ed in detail. CONCLUSION: 1. The appendix is visualized and is normal in appearance. 2. The gallbladder is unremarkable in appearance. 3. Atrophic right kidney. 4. Hypertrophy of the left kidney. Electronically signed by: Collins Lisa MD 04/27/2018 1:40 PM EST
[2018-04-27 15:01] VITALS: TEMP 99.2
[2018-04-27 18:34] VITALS: BP 117/80; PULSE 96
== END 2018-04-27 18:20 | disposition home or self-care (01) ==
LOC: H2E 00:32 → NED 00:32 → H2E 01:44
PROVIDERS: ADMIT Obstetrics & Gynecology; ATTEND Obstetrics & Gynecology
DX: D64.9 Anemia, unspecified; R10.31 Right lower quadrant pain; O26.892 Other specified pregnancy related conditions, second trimester; B19.20 Unspecified viral hepatitis C without hepatic coma; O09.32 Supervision of pregnancy with insufficient antenatal care, second trimester; J45.909 Unspecified asthma, uncomplicated; F15.10 Other stimulant abuse, uncomplicated; O98.412 Viral hepatitis complicating pregnancy, second trimester; O99.712 Diseases of the skin and subcutaneous tissue complicating pregnancy, second trimester; L03.114 Cellulitis of left upper limb; O99.322 Drug use complicating pregnancy, second trimester; O99.332 Smoking (tobacco) complicating pregnancy, second trimester; O99.512 Diseases of the respiratory system complicating pregnancy, second trimester; O23.02 Infections of kidney in pregnancy, second trimester; A54.9 Gonococcal infection, unspecified; B96.20 Unspecified Escherichia coli [E. coli] as the cause of diseases classified elsewhere; A74.9 Chlamydial infection, unspecified; F17.210 Nicotine dependence, cigarettes, uncomplicated; Z3A.17 17 weeks gestation of pregnancy; O98.312 Other infections with a predominantly sexual mode of transmission complicating pregnancy, second trimester